=== PATIENT | female | born 1990 | race Caucasian/White ===

== ENCOUNTER 2016-10-03 23:35 | Emergency (ER) | payer MEDICAID ==
[2016-10-03 23:39] VITALS: BP 101/57; PULSE 79; RESP 16; TEMP 98; O2SAT 99
[2016-10-04] MEDS ORDERED: ACETAMINOPHEN 325 MG TAB PO ONE ×2 (01:15)
--- NOTE | 2016-10-04 01:15 | PD ---
HPI Chief Complaint: Headache Time Seen by Provider: 01:09 Travel History International Travel<30 days: No Contact w/Intl Traveler<30days: No Traveled to known affect area: No History of Present Illness HPI 25-year-old female [id number] in her first trimester presents emergency department for evaluation of headache. According to the patient she is approximately 10 weeks . Translation through the [employer] computer system. She states that she had gone to [facility] approximately 2 weeks ago when she was diagnosed with . She states that she has developed intermittent temporal headaches now for the past week. They can be very sharp and stabbing at times. Currently the pain is mild. She denies any associated nausea or vomiting. No numbness, tingling or weakness. No visual changes. She denies any vaginal bleeding or leakage of fluid. No urinary symptoms. She has not been sick otherwise. She has not seen an OB doctor yet. [facility] Past Medical History Medical History: Denies Significant Hx Tetanus Vaccination: < 5 Years ?: LMP: 07/21/16 Past Surgical History Surgical History: No Previous Surgery Social History Alcohol Use: No Tobacco Use: No Substance Use: No Allergies-Medications (Allergen,Severity, Reaction): Coded Allergies: No Known Allergies (Unverified , 10/04/16) Review of Systems ROS Limitations: Language Barrier Except as stated in HPI: all other systems reviewed are Neg Physical Exam Narrative GENERAL: Well-developed, well-nourished in no apparent distress. Nontoxic appearing. HEAD: Normocephalic, atraumatic. EYES: Pupils equal round and reactive. Extraocular motions intact. No scleral icterus. No injection or drainage. ENT: Nose clear. Throat without erythema, tonsillar hypertrophy or exudate. Uvula midline. Airway patent. NECK: Trachea midline. Supple, nontender, moves head freely. No central bony tenderness or spasm. CARDIOVASCULAR: Regular rate and rhythm without murmurs, gallops, or rubs. RESPIRATORY: Clear to auscultation. Breath sounds equal bilaterally. No wheezes , rales, or rhonchi. GASTROINTESTINAL: Abdomen soft, non-tender, nondistended. No hepato-splenomegaly , or palpable masses. No guarding. EXTREMITIES: No clubbing, cyanosis, or edema. No joint tenderness. BACK: Nontender without deformity. No flank tenderness. NEUROLOGICAL: Awake, alert and oriented x 3 .Cranial nerves grossly intact. Motor and sensory grossly within normal limits. Normal speech. Normal gait. Data Data Last Documented VS Vital Signs Date Time Temp Pulse Resp B/P Pulse Ox O2 Delivery O2 Flow Rate FiO2 10/03/16 23:39 98.0 79 16 101/57 99 Orders Acetaminophen (Tylenol) (10/04/16 01:15) Acetaminophen (Tylenol) (10/04/16 01:15) MDM Medical Decision Making Medical Screen Exam Complete: Yes Emergency Medical Condition: Yes Medical Record Reviewed: Yes Differential Diagnosis MDM: High Differential diagnoses: Subarachnoid hemorrhage, intracranial bleed, aneurysm, pseudotumor, migraine, cluster headache, atypical migraine, temporal arteritis, connective tissue disorder, hypertension, temporal arteritis, sinusitis, sinus headache,malingering Narrative Course The patient is resting comfortable in the examination room. Her vital signs are normal. Her exam is normal. She does not appear to be in any distress whatsoever. I do not believe that any imaging or lab testing are indicated at this time. This is related to the patient through the packager machine. The patient states understanding. She requests formation regarding health and social care teacher for Medicaid follow-up. The patient is given 650 of Tylenol by mouth here in the ER and discharged in stable condition with outpatient follow-up information. This is cephalgia, first trimester Diagnosis Primary Impression: Cephalgia Additional Impression: First trimester Referrals: [facility] 1 week [facility] 1 week Purchasing Coordinator 1 week [facility] Dept. 1 day Patient Instructions: General Instructions Additional Instructions: Rest. Increase fluids. Tylenol for pain. Follow-up with the health Department. Follow-up with an [employer]. Med/Other Pt SpecificInfo: No Meds Exist/No RX given Disposition: DISCHARGE HOME Condition: Stable Richar Blel Oct 04, 2016 01:15
== END 2016-10-04 01:31 | disposition home or self-care (01) ==
LOC: NEPB 23:35
DX: O26.91 Pregnancy related conditions, unspecified, first trimester (principal); R51 Headache; Z3A.10 10 weeks gestation of pregnancy
CPT/HCPCS: 99283

== ENCOUNTER 2016-12-09 01:53 | Emergency (ER) | payer MEDICAID ==
[2016-12-09 01:55] VITALS: BP 112/80; PULSE 88; RESP 16; TEMP 98
--- NOTE | 2016-12-09 02:49 | PD ---
HPI Chief Complaint: Flank/Kidney Pain Time Seen by Provider: 02:09 Travel History International Travel<30 days: No Contact w/Intl Traveler<30days: No Traveled to known affect area: No History of Present Illness HPI 26-year-old female complains of right flank pain and low abdominal pain. Patient is 19 weeks by date. Patient is 1 para 0. Patient started having right flank pain and low abdominal pain started this morning. Patient denies any dysuria or frequency. Patient denies any vaginal discharge or bleeding. Patient states that she has no care for this . PFSH Past Medical History ?: Social History Alcohol Use: No Tobacco Use: No Substance Use: No Allergies-Medications (Allergen,Severity, Reaction): Coded Allergies: No Known Allergies (Unverified , 12/09/16) Reported Meds & Prescriptions Reported Meds & Active Scripts Active No Active Prescriptions or Reported Medications Review of Systems General / Constitutional: No: Fever Eyes: No: Visual changes HENT: No: Headaches Cardiovascular: No: Chest Pain or Discomfort Respiratory: No: Shortness of Breath Gastrointestinal: Positive: Abdominal Pain Genitourinary: No: Dysuria Musculoskeletal: No: Pain Skin: No Rash Neurologic: No: Weakness Psychiatric: No: Depression Endocrine: No: Polydipsia Hematologic/Lymphatic: No: Easy Bruising Physical Exam Narrative GENERAL: Well-nourished, well-developed patient. SKIN: Warm and dry. HEAD: Normocephalic. EYES: No scleral icterus. No injection or drainage. NECK: Supple, trachea midline. No JVD or lymphadenopathy. CARDIOVASCULAR: Regular rate and rhythm without murmurs, gallops, or rubs. RESPIRATORY: Breath sounds equal bilaterally. No accessory muscle use. GASTROINTESTINAL: Fungal high blood umbilicus. Mild tenderness on palpation lower abdomen. No rebound tenderness MUSCULOSKELETAL: No cyanosis, or edema. BACK: Mild tenderness on palpation right flank area. Data Data Last Documented VS Vital Signs Date Time Temp Pulse Resp B/P Pulse Ox O2 Delivery O2 Flow Rate FiO2 12/09/16 01:55 98.0 88 16 112/80 Room Air Orders Urinalysis - C+S If Indicated (12/09/16 03:24) Acetaminophen (Tylenol) (12/09/16 03:30) Us Kidney/Renal/Bladder (12/09/16 05:02) Complete Blood Count With Diff (12/09/16 05:03) Comprehensive Metabolic Panel (12/09/16 05:03) Complete Rh (12/09/16 05:03) Labs Laboratory Tests Test 12/09/16 12/09/16 03:20 05:10 Urine Color YELLOW Urine Turbidity CLEAR Urine pH 6.0 Urine Specific [place] 1.020 Urine Protein NEG mg/dL Urine Glucose (UA) NEG mg/dL Urine Ketones NEG mg/dL Urine Occult Blood NEG Urine Nitrite NEG Urine Bilirubin NEG Urine Urobilinogen LESS THAN 2.0 MG/DL Urine Leukocyte Esterase TRACE Urine RBC LESS THAN 1 /hpf Urine WBC 2 /hpf Urine Squamous Epithelial 2 /hpf Cells Urine Bacteria OCC /hpf Urine Mucus FEW /lpf Microscopic Urinalysis Comment CULT NOT INDICATED White Blood Count 9.0 TH/MM3 Red Blood Count 3.55 MIL/MM3 Hemoglobin 11.5 GM/DL Hematocrit 32.3 % Mean Corpuscular Volume 90.9 FL Mean Corpuscular Hemoglobin 32.3 PG Mean Corpuscular Hemoglobin 35.5 % Concent Red Cell Distribution Width 13.3 % Platelet Count 211 TH/MM3 Mean Platelet Volume 8.3 FL Neutrophils (%) (Auto) 67.2 % Lymphocytes (%) (Auto) 21.5 % Monocytes (%) (Auto) 8.2 % Eosinophils (%) (Auto) 2.2 % Basophils (%) (Auto) 0.9 % Neutrophils # (Auto) 6.1 TH/MM3 Lymphocytes # (Auto) 1.9 TH/MM3 Monocytes # (Auto) 0.7 TH/MM3 Eosinophils # (Auto) 0.2 TH/MM3 Basophils # (Auto) 0.1 TH/MM3 CBC Comment DIFF FINAL Differential Comment Sodium Level 140 MEQ/L Potassium Level 3.7 MEQ/L Chloride Level 109 MEQ/L Carbon Dioxide Level 22.2 MEQ/L Anion Gap 9 MEQ/L Blood Urea Nitrogen 6 MG/DL Creatinine 0.34 MG/DL Estimat Glomerular Filtration 237 ML/MIN Rate Random Glucose 87 MG/DL Calcium Level 8.5 MG/DL Total Bilirubin LESS THAN 0.1 MG/DL Aspartate Amino Transf 35 U/L (AST/SGOT) Alanine Aminotransferase 42 U/L (ALT/SGPT) Alkaline Phosphatase 78 U/L Total Protein 6.4 GM/DL Albumin 2.9 GM/DL Blood Type O POSITIVE Rho(D) Type POSITIVE [facility] Medical Decision Making Medical Screen Exam Complete: Yes Emergency Medical Condition: Yes Interpretation(s) 6:11 AM. CBC within normal limit. CMP within normal limit. UA is negative. Patient's blood type O+. Differential Diagnosis Differential diagnosis including labor, placenta abruptio, UTI, pyelonephritis, nephrolithiasis. Narrative Course 26-year-old female with low abdominal pain and right flank pain. Patient is 19 weeks . I spoke with ED OB. We will sent patient to OB floor for evaluation. Patient came back from OB floor after clearance by ED OB. Scripts No Active Prescriptions or Reported Meds Stevo Bullock MD Dec 09, 2016 02:49
[2016-12-09 03:25] VITALS: BP 124/76; PULSE 78; RESP 14
[2016-12-09] MEDS ORDERED: ACETAMINOPHEN 500 MG CPLT PO ONE (03:30)
[2016-12-09 03:36] LABS: BACTERIA, URINE OCC /hpf; BLOOD, URINE NEG (NEG); COMMENT (UR) CULT NOT INDICATED; CULTURE IF INDICATED CULT NOT INDICATED; GLUCOSE,URINE NEG (NEG); KETONE, URINE NEG (NEG); MUCUS URINE FEW /lpf (OCC); NITRITE,URINE NEG (NEG); SQUAMOUS EPITHELIAL CELL URINE 2 /hpf (0-5); URINE COLOR YELLOW (YELLW/STRAW)
--- NOTE | 2016-12-09 03:44 | PD ---
HPI Chief Complaint Right flank pain Travel History International Travel<30 Days: No Contact w/Intl Traveler<30Days: No Known Affected Area: No History of Present Illness HPI G1 at 20w 1d, LUANNE 04-27-17, presents with c/o right flank pain for a few days. Patient denies dysuria or hematuria. No bowel complaints. Denies taking anything for pain relief. Reports FM. Denies LOF or VB. Patient without care this . Denies F/C. Palauan speaking only. Para: 0 : 1 History Past Medical History Medical History: Denies Significant Hx Past Surgical History Surgical History: No Previous Surgery Family History Family History: Negative Social History Alcohol Use: No Tobacco Use: No Substance Abuse: No Allergies-Medications (Allergen,Severity, Reaction): Coded Allergies: No Known Allergies (Unverified , 12/09/16) Physical Exam AFVSS BP 111/55 Vital Signs Date Time Temp Pulse Resp B/P Pulse Ox O2 Delivery O2 Flow Rate FiO2 12/09/16 01:55 98.0 88 16 112/80 Room Air Narrative GENERAL: Well-nourished, well-developed patient. SKIN: Warm and dry. HEAD: Normocephalic and atraumatic. EYES: No scleral icterus. No injection or drainage. ENT: No nasal drainage noted. Mucous membranes pink. Airway patent. NECK: Supple, trachea midline. No JVD. CARDIOVASCULAR: Regular rate and rhythm without murmurs, gallops, or rubs. RESPIRATORY: Breath sounds equal bilaterally. No accessory muscle use. BREASTS: Bilateral exam showed no masses , no retractions, no nipple discharge. ABDOMEN/GI: Abdomen soft, non-tender, bowel sounds present, no rebound, no guarding Gravid to [-] weeks size Fundal Height: [-] GENITOURINARY: External Genitalia: intact and normal in appearance BUS glands: [-] Cervix: [-] Dilatation: [0] Effacement: [50] Station: [3] Presentation: [-] Membranes: [intact or ruptured] Uterine Contractions: [none] FHT's: 140s Category: [-] Baseline: [-] Reactive: [-] Variability: [-] Decels: [-] EXTREMITIES: No cyanosis or edema. BACK: Nontender without obvious deformity. Slight right CVA tenderness. NEUROLOGICAL: Awake and alert. Motor and sensory grossly within normal limits. Five out of 5 muscle strength in all muscle groups. Normal speech. Data Data Orders Urinalysis - C+S If Indicated (12/09/16 03:24) Acetaminophen (Tylenol) (12/09/16 03:30) Labs Laboratory Tests Test 12/09/16 03:20 Urine Color YELLOW Urine Turbidity CLEAR Urine pH 6.0 Urine Specific [place] 1.020 Urine Protein NEG mg/dL Urine Glucose (UA) NEG mg/dL Urine Ketones NEG mg/dL Urine Occult Blood NEG Urine Nitrite NEG Urine Bilirubin NEG Urine Urobilinogen LESS THAN 2.0 MG/DL Urine Leukocyte Esterase TRACE Urine RBC LESS THAN 1 /hpf Urine WBC 2 /hpf Urine Squamous Epithelial 2 /hpf Cells Urine Bacteria OCC /hpf Urine Mucus FEW /lpf Microscopic Urinalysis Comment CULT NOT INDICATED MDM Interpretation(s) G1 at 20w 1d with right flank pain. Plan Will send patient to ED for further evaluation/renal US. Translation services were utilized. Patient was counseled on importance of care. Information regarding provider given. Importance of hydration also d/w patient. All questions answered. D/w Dr. Bullock in ED. Diagnosis Diagnosis: Primary Impression: 20 weeks gestation of Additional Impression: Back pain affecting in second trimester Disposition: 01 DISCHARGE HOME (To ED for further evaluation, d/w Dr. Bullock) Condition: Alysia Mixon MD Dec 09, 2016 03:44
[2016-12-09 04:30] VITALS: BP 120/80; PULSE 82; RESP 14
[2016-12-09 05:17] LABS: AUTOMATED NEUTROPHIL # 6.1 TH/MM3 (1.8-7.7); BASOPHIL # 0.1 TH/MM3 (0-0.2); BASOPHIL % 0.9 % (0.0-2.0); EOSINOPHIL # 0.2 TH/MM3 (0-0.4); EOSINOPHIL % 2.2 % (0.0-4.0); HEMATOCRIT 32.3 % (35.0-46.0); HEMO FLAGS DIFF FINAL; LYMPH % 21.5 % (9.0-44.0); LYMPHOCYTE # 1.9 TH/MM3 (1.0-4.8); MEAN CELL VOLUME 90.9 FL (80.0-100.0); MEAN CORPUSCULAR HEMOGLOBIN 32.3 PG (27.0-34.0); MEAN CORPUSCULAR HGB CONC 35.5 % (32.0-36.0); MONO % 8.2 % (0.0-8.0); NEUT % 67.2 % (16.0-70.0); PLATELET COUNT 211 TH/MM3 (150-450); RED BLOOD COUNT 3.55 MIL/MM3 (4.00-5.30); RED CELL DISTRIBUTION WIDTH 13.3 % (11.6-17.2)
[2016-12-09 05:31] LABS: ALT (GPT) 42 U/L (10-53); ANION GAP 9 MEQ/L (5-15); AST (GOT) 35 U/L (15-37); BICARBONATE 22.2 MEQ/L (21.0-32.0); BLOOD UREA NITROGEN 6 MG/DL (7-18); CHLORIDE 109 MEQ/L (98-107); GLOMERULAR FILTRATION RATE 237 ML/MIN (>89); POTASSIUM 3.7 MEQ/L (3.5-5.1); SODIUM (NA) 140 MEQ/L (136-145)
[2016-12-09 05:34] LABS: ALKALINE PHOSPHATASE 78 U/L (45-117); TOTAL BILIRUBIN ADULT LESS THAN 0.1 MG/DL (0.2-1.0)
[2016-12-09 06:38] VITALS: BP 118/78; PULSE 80; RESP 14
--- NOTE | 2016-12-09 10:03 | RADRPT ---
EXAM DATE/TIME: 12/09/2016 08:18 [facility] COMPARISON: No previous studies available for comparison. INDICATIONS : Obstruction, right flank pain. MEDICAL HISTORY : 19 weeks . SURGICAL HISTORY : None. ENCOUNTER: Initial ACUITY: 1 day PAIN SCORE: 3/10 LOCATION: Bilateral flank MEASUREMENTS: RIGHT KIDNEY: 11.6 x 5.6 x 6.3 cm LEFT KIDNEY: 11.0 x 4.0 x 6.2 cm FINDINGS: RIGHT KIDNEY: Renal cortex is normal in thickness and echotexture. Moderate hydronephrosis. No stones. LEFT KIDNEY: Renal cortex is normal in thickness and echotexture. Mild hydronephrosis. No stones BLADDER: Bladder is decompressed. There is a gravid uterus. Images of the head are provided. CONCLUSION: 1. Moderate hydronephrosis on the right and mild hydronephrosis on the left. 2. Gravid uterus. Urinary bladder is mostly decompressed. Jimbo Ayon MD on December 09, 2016 at 9:55 Board Certified Radiologist. This report was verified electronically.
[2016-12-09] MEDS ORDERED: CEPH-460 PO (10:26)
[2016-12-09] MEDS ORDERED: ZOFR4TAB3 SL (10:27)
[2016-12-09] MEDS ORDERED: HYDR-3533 PO (10:27)
--- NOTE | 2016-12-09 10:27 | PD ---
Physical Exam Date Seen by Provider: Dec 09, 2016 Time Seen by Provider: 07:00 Narrative Patient initially seen by Dr. Bass please see his nose for further details. She is 20 weeks without care, states that she is still waiting for insurance to get care. She is here because of flank pains which is worse on the right. Lab work did not show significant issues, does show bacteriuria which we plan to treat with antibiotics. Her ultrasound did not show signs of kidney stones but does show hydronephrosis on both sides more pronounced on the right than the left, likely secondary to gravid uterus compression of the ureters rather than kidney stones although a kidney stone can be hard to rule out these cases. However, patient appears fairly comfortable in the ER and I would not recommend a CAT scan at this point considering the findings. Return for any worsening in pain or new symptoms as needed. I have talked to the patient regarding findings and have recommended that she follows up with women's care now and gynecology. Return for any worsening in pain or new symptoms as needed. The plan has been discussed with the patient and she states understanding. Data Data Last Documented VS Vital Signs Date Time Temp Pulse Resp B/P Pulse Ox O2 Delivery O2 Flow Rate FiO2 12/09/16 06:38 80 14 118/78 Room Air 12/09/16 01:55 98.0 Orders Urinalysis - C+S If Indicated (12/09/16 03:24) Acetaminophen (Tylenol) (12/09/16 03:30) Us Kidney/Renal/Bladder (12/09/16 05:02) Complete Blood Count With Diff (12/09/16 05:03) Comprehensive Metabolic Panel (12/09/16 05:03) Complete Rh (12/09/16 05:03) Labs Laboratory Tests Test 12/09/16 12/09/16 03:20 05:10 Urine Color YELLOW Urine Turbidity CLEAR Urine pH 6.0 Urine Specific [place] 1.020 Urine Protein NEG mg/dL Urine Glucose (UA) NEG mg/dL Urine Ketones NEG mg/dL Urine Occult Blood NEG Urine Nitrite NEG Urine Bilirubin NEG Urine Urobilinogen LESS THAN 2.0 MG/DL Urine Leukocyte Esterase TRACE Urine RBC LESS THAN 1 /hpf Urine WBC 2 /hpf Urine Squamous Epithelial 2 /hpf Cells Urine Bacteria OCC /hpf Urine Mucus FEW /lpf Microscopic Urinalysis Comment CULT NOT INDICATED White Blood Count 9.0 TH/MM3 Red Blood Count 3.55 MIL/MM3 Hemoglobin 11.5 GM/DL Hematocrit 32.3 % Mean Corpuscular Volume 90.9 FL Mean Corpuscular Hemoglobin 32.3 PG Mean Corpuscular Hemoglobin 35.5 % Concent Red Cell Distribution Width 13.3 % Platelet Count 211 TH/MM3 Mean Platelet Volume 8.3 FL Neutrophils (%) (Auto) 67.2 % Lymphocytes (%) (Auto) 21.5 % Monocytes (%) (Auto) 8.2 % Eosinophils (%) (Auto) 2.2 % Basophils (%) (Auto) 0.9 % Neutrophils # (Auto) 6.1 TH/MM3 Lymphocytes # (Auto) 1.9 TH/MM3 Monocytes # (Auto) 0.7 TH/MM3 Eosinophils # (Auto) 0.2 TH/MM3 Basophils # (Auto) 0.1 TH/MM3 CBC Comment DIFF FINAL Differential Comment Sodium Level 140 MEQ/L Potassium Level 3.7 MEQ/L Chloride Level 109 MEQ/L Carbon Dioxide Level 22.2 MEQ/L Anion Gap 9 MEQ/L Blood Urea Nitrogen 6 MG/DL Creatinine 0.34 MG/DL Estimat Glomerular Filtration 237 ML/MIN Rate Random Glucose 87 MG/DL Calcium Level 8.5 MG/DL Total Bilirubin LESS THAN 0.1 MG/DL Aspartate Amino Transf 35 U/L (AST/SGOT) Alanine Aminotransferase 42 U/L (ALT/SGPT) Alkaline Phosphatase 78 U/L Total Protein 6.4 GM/DL Albumin 2.9 GM/DL Blood Type O POSITIVE Rho(D) Type POSITIVE MDM Medical Record Reviewed: Yes Supervised Visit with CHOCO: No Diagnosis Primary Impression: 20 weeks gestation of Additional Impression: Back pain affecting in second trimester Patient Instructions: General Instructions, Early Labor Signs (ED), Labor (ED), Movement (ED), Urinary Tract Infection in (ED) Departure Forms: Tests/Procedures Med/Other Pt SpecificInfo: Prescription(s) given Scripts Ondansetron Odt (Zofran Odt)4 Mg Tab4 Mg SL Q6HR PRN (Nausea/Vomiting) #5 TAB Ref 0 Prov:SoonTra king MD 12/09/16 Hydrocodone-Acetaminophen (Lortab)5-325 Mg Tab1 Tab PO Q6H PRN (PAIN) #12 TAB Ref 0 Prov:Soontharothai,Rewadee MD 12/09/16 Cephalexin (Keflex)500 Mg Nut113 Mg PO Q8H #21 CAP Ref 0 Prov:Tra Jones MD 12/09/16 Disposition: 01 DISCHARGE HOME Condition: Good Tra Jones MD Dec 09, 2016 10:27
[2016-12-09 10:34] VITALS: BP 114/62
== END 2016-12-09 10:37 | disposition home or self-care (01) ==
LOC: HOBED 01:53 → NEPE 10:37
DX: O26.892 Other specified pregnancy related conditions, second trimester (principal); M54.9 Dorsalgia, unspecified; R10.30 Lower abdominal pain, unspecified; R82.71 Bacteriuria; O09.32 Supervision of pregnancy with insufficient antenatal care, second trimester; Z3A.20 20 weeks gestation of pregnancy
CPT/HCPCS: 76775; 80053; 81001; 84112; 85025; 86901

== ENCOUNTER 2017-02-22 00:32 | Observation (INO) | payer MEDICAID ==
[~2017-02-22] VITALS: Ht 162.6 cm; Wt 48.0 kg
[2017-02-22] VITALS (10 sets, daily range): BP systolic 94–109; BP diastolic 54–69; PULSE 75–160; RESP 14–28; TEMP 97.7–98.9; O2SAT 98–100
[~2017-02-22 00:32] MED LIST: CEPH-460 PO; HYDR-3533 PO; ZOFR4TAB3 SL
[2017-02-22] MEDS ORDERED: LACTATED RINGER'S 1000 ML INJ 1,000 ML IV SCH (00:38)
[2017-02-22 00:49] LABS: HEMATOCRIT 31.2 % (35.0-46.0); MEAN CORPUSCULAR HEMOGLOBIN 30.9 PG (27.0-34.0); MEAN CORPUSCULAR HGB CONC 34.8 % (32.0-36.0); PLATELET COUNT 257 TH/MM3 (150-450); RED BLOOD COUNT 3.51 MIL/MM3 (4.00-5.30); RED CELL DISTRIBUTION WIDTH 12.7 % (11.6-17.2); REVIEW FLAG FINAL; WHITE BLOOD COUNT 11.1 TH/MM3 (4.0-11.0)
[2017-02-22 01:07] LABS: ALT (GPT) 19 U/L (10-53); ANION GAP 12 MEQ/L (5-15); AST (GOT) 22 U/L (15-37); BICARBONATE 21.9 MEQ/L (21.0-32.0); BLOOD UREA NITROGEN 4 MG/DL (7-18); CHLORIDE 105 MEQ/L (98-107); GLOMERULAR FILTRATION RATE 159 ML/MIN (>89); POTASSIUM 3.3 MEQ/L (3.5-5.1); SODIUM (NA) 139 MEQ/L (136-145)
[2017-02-22 01:09] LABS: ALKALINE PHOSPHATASE 162 U/L (45-117); TOTAL BILIRUBIN ADULT 0.2 MG/DL (0.2-1.0)
--- NOTE | 2017-02-22 01:11 | PD ---
HPI Chief Complaint Patient brought in by her family and essentially catatonic state saying that she is now noncommunicative Date Seen: Feb 22, 2017 Travel History International Travel<30 Days: No Contact w/Intl Traveler<30Days: No Known Affected Area: No History of Present Illness HPI Patient 26-year-old at 30 weeks gestation who presents brought in by her family and essentially catatonic state of after an event at home. She was doing well but all day had severe headaches she has no history of any Medical problems no history of headaches no history of hypertension, she then as this family describes it fell out became unresponsive they felt she wouldn't have a pulse they tried mouth to mouth resuscitation she was breathing and had heart rate but was essentially unresponsive she can look at you she can shake her head that she cannot speak, she was speaking prior to all this family relates that she was very normal happy person with no problems, she does not speak Upper Sorbian and nor does the family. Here on OB ED the patient is noncommunicative of she does express pain by crying but says she cannot speak family says she cannot speak Para: 0 : 1 History Past Medical History Medical History: Denies Significant Hx Social History Alcohol Use: No Tobacco Use: No Substance Abuse: No Allergies-Medications (Allergen,Severity, Reaction): Coded Allergies: No Known Allergies (Unverified , 12/09/16) Home Meds Active Scripts Ondansetron Odt (Zofran Odt)4 Mg Tab4 Mg SL Q6HR PRN (Nausea/Vomiting) #5 TAB Ref 0 Prov:Tra Jones MD 12/09/16 Hydrocodone-Acetaminophen (Lortab)5-325 Mg Tab1 Tab PO Q6H PRN (PAIN) #12 TAB Ref 0 Prov:Tra Jones MD 12/09/16 Cephalexin (Keflex)500 Mg Dxi111 Mg PO Q8H #21 CAP Ref 0 Prov:Tra Jones MD 12/09/16 Physical Exam Narrative GENERAL: Well-nourished, well-developed patient. SKIN: Warm and dry. HEAD: Normocephalic and atraumatic. EYES: No scleral icterus. No injection or drainage. Pupils are not dilated and equal and reactive ENT: No nasal drainage noted. Mucous membranes pink. Airway patent. NECK: Supple, trachea midline. No JVD. CARDIOVASCULAR: Regular rate and rhythm without murmurs, gallops, or rubs. RESPIRATORY: Breath sounds equal bilaterally. No accessory muscle use. BREASTS: Bilateral exam showed no masses , no retractions, no nipple discharge. ABDOMEN/GI: Abdomen soft, non-tender, bowel sounds present, no rebound, no guarding Gravid to [-30] weeks size Presentation: [Backdown transverse with the head to the left-] Membranes: [intact ] Uterine Contractions: [none-] FHT's: Category: [1-] Baseline: [-144] Reactive: [-yes] Variability: [mod-] Decels: [0-] EXTREMITIES: No cyanosis or edema. BACK: Nontender without obvious deformity. No CVA tenderness. NEUROLOGICAL: Apparently a large mental status change this patient after severe headache earlier this evening, now aphasic unable to speak and will not move voluntarily Data Data Orders Vital Signs (Adult) .ON ADMISSION (02/22/17 00:38) ^ Labor Status (02/22/17 00:38) Urinalysis - C+S If Indicated (02/22/17 00:38) Cbc No Diff, Includes Plts (02/22/17 00:38) Comprehensive Metabolic Panel (02/22/17 00:38) Type And Screen (02/22/17 00:38) Lactated Ringer's 1000 Ml Inj (Lr 1000 M (02/22/17 00:38) Ob/Psych Drug Screen, Urine (02/22/17 00:38) Ob Poc Ultrasound (02/22/17 ) Labs Bedside ultrasound done with male fetus in a backdown transverse lie with the head to the left gestational age of 30 weeks 3 days by the growth parameters, posterior placenta and adequate amniotic fluid, no gross abnormalities and anatomy scan estimated weight 1505 gm Laboratory Tests Test 02/22/17 00:38 White Blood Count 11.1 Red Blood Count 3.51 Hemoglobin 10.9 Hematocrit 31.2 Mean Corpuscular Volume 89.0 Mean Corpuscular Hemoglobin 30.9 Mean Corpuscular Hemoglobin 34.8 Concent Red Cell Distribution Width 12.7 Platelet Count 257 Mean Platelet Volume 8.2 MDM Interpretation(s) This patient is [id number]-[id number]-year-old at 30 weeks gestation who presents with acute mental status change after massive headache event earlier at home, the patient is noncommunicative a phasic and his sister catatonic only responding to the pain but is shaking or crying but not able to speak Plan Plan for this patient be transferred back to the main emergency room for acute neurologic emergent evaluation with CT scan and or MRI of the head, laps been drawn most of it pending at this time urinalysis sent drug screen sent, cleared from obstetric standpoint with the 30 week fetus with reactive strip and normal ultrasound plan to transfer to the main emergency room for further care Diagnosis Diagnosis: Primary Impression: Mental status change Additional Impression: Aphasia determined by examination Condition: Serious Charles Hidalgo II, MD Feb 22, 2017 01:11
[2017-02-22 01:17] LABS: BLOOD, URINE NEG (NEG); COMMENT (UR) CULT NOT INDICATED; CULTURE IF INDICATED CULT NOT INDICATED; GLUCOSE,URINE 300 mg/dL (NEG); KETONE, URINE 10 mg/dL (NEG); MUCUS URINE FEW /lpf (OCC); NITRITE,URINE NEG (NEG); PH, URINE 6.5 (5.0-8.5); SQUAMOUS EPITHELIAL CELL URINE <1 /hpf (0-5); TRANSITIONAL EPI CELLS, URINE <1 /hpf; URINE COLOR YELLOW (YELLW/STRAW)
[2017-02-22 01:18] LABS: AMPHETAMINE, URINE NEG (NEG); BARBITURATES, URINE NEG (NEG); COCAINE, URINE NEG (NEG)
--- NOTE | 2017-02-22 01:44 | RADRPT ---
EXAM DATE/TIME: 02/22/2017 01:30 [facility] COMPARISON: No previous studies available for comparison. INDICATIONS : Altered mental status. Patient in catatonic state. Headache. RADIATION DOSE: 33.81 CTDIvol (mGy) MEDICAL HISTORY : Non-responsive. SURGICAL HISTORY : Non-responsive. ENCOUNTER: Initial ACUITY: 1 day PAIN SCALE: Non-responsive LOCATION: cranial TECHNIQUE: Multiple contiguous axial images were obtained of the head. Using automated exposure control and adj ustment of the mA and/or kV according to patient size, radiation dose was kept as low as reasonably a chievable to obtain optimal diagnostic quality images. FINDINGS: CEREBRUM: The ventricles are normal for age. No evidence of midline shift, mass lesion, hemorrhage or acute in farction. No extra-axial fluid collections are seen. POSTERIOR FOSSA: The cerebellum and brainstem are intact. The 4th ventricle is midline. The cerebellopontine angle i s unremarkable. EXTRACRANIAL: The visualized portion of the orbits is intact. SKULL: The calvaria is intact. No evidence of skull fracture. CONCLUSION: Normal examination. Juan Luis Antonio MD on February 22, 2017 at 1:42 Board Certified Radiologist. This report was verified electronically.
--- NOTE | 2017-02-22 04:17 | PD ---
HPI Chief Complaint: Neuro Symptoms/ Deficits Time Seen by Provider: 01:27 Travel History International Travel<30 days: No Contact w/Intl Traveler<30days: No Traveled to known affect area: No History of Present Illness HPI 26yo F who is 30 weeks was sent here after being evaluated by OB ED for evaluation because she was nonverbal since 12am. Pt was tearful and nonverbal and as per family, it just started at 12am. Pt is following commands. Family states pt had headache since 2pm today. Denies any fever or vomiting. Pt nods and shakes head and shakes that the right side does not feel the same. PFSH Past Medical History Medical History: Denies Significant Hx Diminished Hearing: No Immunizations Current: Yes ?: Social History Alcohol Use: No Tobacco Use: No Substance Use: No Allergies-Medications (Allergen,Severity, Reaction): Coded Allergies: No Known Allergies (Unverified , 12/09/16) Reported Meds & Prescriptions Reported Meds & Active Scripts Active No Active Prescriptions or Reported Medications Review of Systems Except as stated in HPI: all other systems reviewed are Neg Physical Exam Narrative GENERAL: 26yo F in moderate distress. SKIN: Focused skin assessment warm/dry. HEAD: Atraumatic. Normocephalic. EYES: Pupils equal and round. No scleral icterus. No injection or drainage. ENT: No nasal bleeding or discharge. Mucous membranes pink and moist. NECK: Trachea midline. No JVD. CARDIOVASCULAR: Regular rate and rhythm. No murmur appreciated. RESPIRATORY: No accessory muscle use. Clear to auscultation. Breath sounds equal bilaterally. GASTROINTESTINAL: Abdomen soft, non-tender, nondistended. Hepatic and splenic margins not palpable. MUSCULOSKELETAL: No obvious deformities. No clubbing. No cyanosis. No edema. NEUROLOGICAL: Awake and alert. Aphasic. Motor grossly within normal limits. PSYCHIATRIC: Inappropriate mood and affect; insight and judgment abnormal. Data Data Last Documented VS Vital Signs Date Time Temp Pulse Resp B/P Pulse Ox O2 Delivery O2 Flow Rate FiO2 02/22/17 01:30 98.9 76 28 104/56 99 Room Air Orders Vital Signs (Adult) .ON ADMISSION (02/22/17 00:38) ^ Labor Status (02/22/17 00:38) Urinalysis - C+S If Indicated (02/22/17 00:38) Cbc No Diff, Includes Plts (02/22/17 00:38) Comprehensive Metabolic Panel (02/22/17 00:38) Type And Screen (02/22/17 00:38) Lactated Ringer's 1000 Ml Inj (Lr 1000 M (02/22/17 00:38) Ob/Psych Drug Screen, Urine (02/22/17 00:38) Ob Poc Ultrasound (02/22/17 ) Ur Bath Salts (02/22/17 00:50) Ur Heroin (02/22/17 00:50) Ur K2 Spice (02/22/17 00:50) Ur Ecstasy (02/22/17 00:50) Phencyclidine Urine (Pcp) (02/22/17 00:50) Ct Brain W/O Iv Contrast(Rout) (02/22/17 ) Mri Brain W/O Contrast (02/22/17 ) Mra Brain W/O Contrast (Cow) (02/22/17 ) Admit Order (Ed Use Only) (02/22/17 03:59) Labs Laboratory Tests Test 02/22/17 02/22/17 00:38 00:50 White Blood Count 11.1 TH/MM3 Red Blood Count 3.51 MIL/MM3 Hemoglobin 10.9 GM/DL Hematocrit 31.2 % Mean Corpuscular Volume 89.0 FL Mean Corpuscular Hemoglobin 30.9 PG Mean Corpuscular Hemoglobin 34.8 % Concent Red Cell Distribution Width 12.7 % Platelet Count 257 TH/MM3 Mean Platelet Volume 8.2 FL Sodium Level 139 MEQ/L Potassium Level 3.3 MEQ/L Chloride Level 105 MEQ/L Carbon Dioxide Level 21.9 MEQ/L Anion Gap 12 MEQ/L Blood Urea Nitrogen 4 MG/DL Creatinine 0.48 MG/DL Estimat Glomerular Filtration 159 ML/MIN Rate Random Glucose 113 MG/DL Calcium Level 8.1 MG/DL Total Bilirubin 0.2 MG/DL Aspartate Amino Transf 22 U/L (AST/SGOT) Alanine Aminotransferase 19 U/L (ALT/SGPT) Alkaline Phosphatase 162 U/L Total Protein 6.9 GM/DL Albumin 2.9 GM/DL Blood Type O POSITIVE Antibody Screen NEGATIVE Urine Color YELLOW Urine Turbidity CLEAR Urine pH 6.5 Urine Specific Coleman 1.017 Urine Protein TRACE mg/dL Urine Glucose (UA) 300 mg/dL Urine Ketones 10 mg/dL Urine Occult Blood NEG Urine Nitrite NEG Urine Bilirubin NEG Urine Urobilinogen LESS THAN 2.0 MG/DL Urine Leukocyte Esterase NEG Urine RBC 1 /hpf Urine WBC 1 /hpf Urine Squamous Epithelial <1 /hpf Cells Urine Transitional Epithelial <1 /hpf Cells Urine Mucus FEW /lpf Microscopic Urinalysis Comment CULT NOT INDICATED Urine Opiates Screen NEG Urine Barbiturates Screen NEG Urine Amphetamines Screen NEG Urine Benzodiazepines Screen NEG Urine Cocaine Screen NEG Urine Cannabinoids Screen NEG MDM Medical Decision Making Medical Screen Exam Complete: Yes Emergency Medical Condition: Yes Differential Diagnosis Conversion disorder vs. psychosis vs. CVA Narrative Course 26yo F brought here from OB ED for evaluation of change in mental status at 12am today. Labs were drawn in OB ED. Labs reviewed, H/H low at 10.9/31.2, likely normal from . K: mildly decreased at 3.3. UA showed some ketones. Pt is tearful, following commands but would not speak. CT brain negative. I discussed with neurologist Dr. Bonner who also does not think this sounds like a stroke but recommend MRI brain and MRA. Pt reevaluated at bedside and started talking. States she has right arm and leg numbness and tingling today. Pt states headache has resolved. Had similar episode 10 months ago when she was stressed. Although this is likely conversion disorder, will need to r/o TIA since pt has no psych history. Discussed with Dr. Arambula and accepted to his service. Diagnosis Primary Impression: Aphasia determined by examination Admitting Information Admitting Physician Requests: Observation Scripts No Active Prescriptions or Reported Meds Condition: Serious Arlen Motta DO Feb 22, 2017 04:17 Condition: Serious Arlen Motta DO Feb 22, 2017 04:17
--- NOTE | 2017-02-22 04:52 | RADRPT ---
EXAM DATE/TIME: 02/22/2017 03:20 [facility] COMPARISON: No previous studies available for comparison. INDICATIONS : Stroke. MEDICAL HISTORY : 30 weeks SURGICAL HISTORY : None. ENCOUNTER: Initial ACUITY: 1 day PAIN SCORE: 3/10 LOCATION: Bilateral cranial Please note a normal MRA of the brain does not entirely exclude the possibility of a small aneurysm, nor the possibility of distal intracranial vessel disease. TECHNIQUE: 3D time of flight MRA was performed. Source images, multiplanar STS MIP, and 3D volume MIP reconstru ctions were reviewed. FINDINGS: There is excellent visualization of the major intracranial arteries out to the second-order branch ve ssels. There is no evidence for aneurysm, vessel truncation or stenosis, and no evidence for vascula r malformation. Both posterior communicating arteries are patent. There is irregularity involving the superior anter ior margin of the left A1 of uncertain significance CONCLUSION: Normal examination in regards to aneurysm or narrowing. Mild irregularity of the left A1 of uncertain significance likely none. Juan Luis Antonio MD on February 22, 2017 at 4:49 Board Certified Radiologist. This report was verified electronically.
--- NOTE | 2017-02-22 04:53 | RADRPT ---
EXAM DATE/TIME: 02/22/2017 03:20 [facility] COMPARISON: CT BRAIN W/O CONTRAST, February 22, 2017, 1:30. INDICATIONS : Stroke. MEDICAL HISTORY : 30 weeks . SURGICAL HISTORY : None. ENCOUNTER: Initial ACUITY: 1 day PAIN SCORE: 3/10 LOCATION: Bilateral cranial TECHNIQUE: Multiplanar, multisequence MRI of the brain was performed without contrast. FINDINGS: CEREBRUM: The ventricles are normal for age. No evidence of midline shift, mass lesion, hemorrhage or acute in farction. No extraaxial fluid collections are seen. The pituitary gland and suprasellar cistern are normal in configuration. WHITE MATTER: No significant signal abnormalities are seen in the white matter. POSTERIOR FOSSA: The cerebellum and brainstem are intact. The 4th ventricle is midline. The cerebellopontine angle is unremarkable. The cerebellar tonsils are normal in position. DIFFUSION IMAGING: No focal areas of restricted diffusion are seen. No evidence of acute infarction. EXTRACRANIAL: The visualized portions of the orbits and paranasal sinuses are unremarkable. CONCLUSION: Normal examination. Juan Luis Antonio MD on February 22, 2017 at 4:51 Board Certified Radiologist. This report was verified electronically.
[2017-02-22] MEDS ORDERED: SODIUM CHLORIDE 0.9% FLUSH 10 ML FLUSH IV FLUSH PRN (07:00)
[2017-02-22] MEDS ORDERED: NALOXONE HCL 0.4 MG/ML AMP IV PRN (07:00)
[2017-02-22] MEDS ORDERED: SODIUM CHLORIDE 0.9% FLUSH 5 ML FLUSH IV FLUSH PRN (07:15)
[2017-02-22] MEDS ORDERED: DEXTROSE 50% IN WATER 50 ML VIAL(D50) IV PUSH PRN (07:15)
[2017-02-22] MEDS ORDERED: GLUCAGON 1 MG/ML VIAL OTHER PRN (07:15)
[2017-02-22] MEDS: SODIUM CHLOR 0.9% 1000 ML INJ 1,000 ML IV SCH ×3 (07:42→21:43)
[2017-02-22] MEDS: SODIUM CHLORIDE 0.9% FLUSH 5 ML FLUSH IV FLUSH SCH ×2 (09:00→21:00)
[2017-02-22] MEDS ORDERED: SODIUM CHLORIDE 0.9% FLUSH 10 ML FLUSH IV FLUSH SCH (09:00)
--- NOTE | 2017-02-22 09:54 | HHI.HP ---
[facility] Service [facility] Primary Care Physician No Primary Care Physician Admission Diagnosis TIA Diagnoses: Travel History International Travel<30 Days: No Contact w/Intl Traveler <30 Da: No Traveled to Known Affected Are: No History of Present Illness Mrs. Cruz is a 26-year-old female. She is Icelandic-speaking and the interview was conducted in Icelandic. She is admitted for acute mutism. She is 30 weeks . No previous episodes have occurred like this. This occurred last night. When I see her this morning she has a return of her ability to communicate and speak. At home there is a report of an apparent catatonic episode with an acute onset of inability to speak. When evaluated by the ER physicians she was able to understand speech was tearful and scared because she still cannot speak. She was evaluated by [facility] Dr. Hidalgo in the ER and cleared for medical workup. MRI and MRA of the brain are negative. Her episode of catatonia mutism was preceded by headaches during the day. She reports no prior surgeries, no prior medical conditions other than , no pain when seen this morning, she does not smoke or drink alcohol or do illicit drugs. She feels her speech has returned back to normal this morning. No other complaints. Review of Systems Constitutional: DENIES: Fatigue, Fever, Weight loss Eyes: DENIES: Blurred vision, Diplopia Ears, nose, mouth, throat: DENIES: Hearing loss, Vertigo Respiratory: DENIES: Cough, Wheezing, Shortness of breath Cardiovascular: DENIES: Chest pain Gastrointestinal: DENIES: Abdominal pain, Black stools, Bloody stools Genitourinary: DENIES: Abnormal vaginal bleeding, Urinary incontinence Musculoskeletal: DENIES: Joint pain, Muscle aches Integumentary: DENIES: Abnormal pigmentation Hematologic/lymphatic: DENIES: Bruising Immunologic/allergic: DENIES: Eczema Neurologic: COMPLAINS OF: Speech Problems, DENIES: Abnormal gait Psychiatric: DENIES: Anxiety, Confusion Past Family Social History Past Medical History Past Surgical History None Reported Medications Reported Meds & Active Scripts Active No Active Prescriptions or Reported Medications Allergies: Coded Allergies: No Known Allergies (Unverified , 324/17) Active Ordered Medications Administered Medications Medications (Trade) Dose Ordered Sig/Germania Route PRN Reason Start Time Stop Time Status Last Admin Dose Admin Sodium Chloride (NS 1000 ml Inj) 1,000 ml @ 70 mls/hr [id number] IV 02/22/17 07:06 02/22/17 07:42 Family History None Social History No smoking No drinking alcohol No drug abuse Physical Exam Vital Signs Vital Signs Date Time Temp Pulse Resp B/P Pulse Ox O2 Delivery O2 Flow Rate FiO2 02/22/17 08:02 75 18 107/65 98 Room Air 02/22/17 01:30 98.9 76 28 104/56 99 Room Air 02/22/17 01:04 97.7 02/22/17 00:55 160 109/69 02/22/17 00:45 02/22/17 00:35 76 28 99 Room Air 02/22/17 00:30 14 Physical Exam GENERAL: NAD, A&Ox3 SKIN: Warm and dry. HEAD: Normocephalic. EYES: No scleral icterus. No injection or drainage. NECK: Supple, trachea midline. No JVD or lymphadenopathy. CARDIOVASCULAR: Regular rate and rhythm without murmurs, gallops, or rubs. RESPIRATORY: Breath sounds equal bilaterally. No accessory muscle use. GASTROINTESTINAL: Abdomen soft, non-tender, nondistended. Palpable uterus secondary to . MUSCULOSKELETAL: No cyanosis, or edema. Laboratory Laboratory Tests Test 02/22/17 02/22/17 00:38 00:50 White Blood Count 11.1 Red Blood Count 3.51 Hemoglobin 10.9 Hematocrit 31.2 Mean Corpuscular Volume 89.0 Mean Corpuscular Hemoglobin 30.9 Mean Corpuscular Hemoglobin 34.8 Concent Red Cell Distribution Width 12.7 Platelet Count 257 Mean Platelet Volume 8.2 Sodium Level 139 Potassium Level 3.3 Chloride Level 105 Carbon Dioxide Level 21.9 Anion Gap 12 Blood Urea Nitrogen 4 Creatinine 0.48 Estimat Glomerular Filtration 159 Rate Random Glucose 113 Calcium Level 8.1 Total Bilirubin 0.2 Aspartate Amino Transf 22 (AST/SGOT) Alanine Aminotransferase 19 (ALT/SGPT) Alkaline Phosphatase 162 Total Protein 6.9 Albumin 2.9 Blood Type O POSITIVE Antibody Screen NEGATIVE Urine Color YELLOW Urine Turbidity CLEAR Urine pH 6.5 Urine Specific Bronson 1.017 Urine Protein TRACE Urine Glucose (UA) 300 Urine Ketones 10 Urine Occult Blood NEG Urine Nitrite NEG Urine Bilirubin NEG Urine Urobilinogen LESS THAN 2.0 Urine Leukocyte Esterase NEG Urine RBC 1 Urine WBC 1 Urine Squamous Epithelial <1 Cells Urine Transitional Epithelial <1 Cells Urine Mucus FEW Microscopic Urinalysis Comment CULT NOT INDICATED Urine Opiates Screen NEG Urine Barbiturates Screen NEG Urine Amphetamines Screen NEG Urine Benzodiazepines Screen NEG Urine Cocaine Screen NEG Urine Cannabinoids Screen NEG Result Diagram: 02/22/173702/22/1737 Assessment and Plan Problem List: (1) Aphasia determined by examination ICD Code: R47.01 Status: Acute (2) Catatonia ICD Code: F06.1 Status: Acute (3) Mutism ICD Code: R47.01 Status: Acute Assessment and Plan Assessment and plan 26-year-old Icelandic-speaking female who is 30 weeks with acute onset of mutism and catatonia. Symptoms have resolved by this morning. Acute mutism Acute catatonia Symptoms resolved. Patient speaking abnormal baseline MRI and MRA of brain are within normal limits Monitor for any recurrence next Etiology does not appear to be CVA TIA as possible but less likely Given preceding headache and atypical migraine could've caused this versus seizure versus psychiatric etiology Neurology is following 30 weeks gestation No acute concerns from gynecology Continue following with [facility] as an outpatient DVT prophylaxis SCDs while in bed Timmy Calabrese MD Feb 22, 2017 09:54
[2017-02-22] MEDS: INSULIN ASPART SUPPLEMENTAL SCALE SQ SCH ×3 (11:00→21:00)
--- NOTE | 2017-02-22 11:34 | MB ---
cc: ANTONIO QUINTERO M.D. DATE OF CONSULTATION: 02/22/2017 REASON FOR CONSULTATION Headache, mental status change. HISTORY OF PRESENT ILLNESS This is a very pleasant 26-year-old Japanese-speaking female. The patient developed yesterday a severe headache in the frontal area. She had difficulty getting words out at that time, she had no focal weakness or numbness. History is obtained through her nurse who is able to interpret Japanese. She states she feels back to normal at the present time but has moderate frontal headache. Her speech is normal. There is no focal deficit. She does have a history of migraine headaches. PAST MEDICAL HISTORY The patient is currently 30 weeks . She has a history of migraine headaches, apparently no other past medical history. MEDICATION Her medications currently: None. NEUROLOGIC EXAMINATION VITAL SIGNS: Blood pressure 107/65, pulse 75, respirations 18, temperature 98 degrees. Higher cortical function obtained through an rim fire priming operator is normal. She feels her speech is normal at the present time. She follows commands. Cranial nerves are intact. Motor exam reveals no drift. She has got normal strength bilaterally. Reflexes symmetric. IMAGING STUDIES She had an MRI of the brain which is within normal limits. MRA of the brain is also normal. CT of the brain is within normal limits. LABORATORY DATA The white count 11,100, hemoglobin 10.9, hematocrit 31%, platelet count 257,000. Sodium is 139, potassium 3.3, chloride 105, CO2 21.9, BUN 4, creatinine 0.48, GFR 159, glucose 113, AST 22, ALT 19. Tox screen is negative. Urinalysis the pH is 6.5, specific gravity 1.017, glucose is 300, ketone is 100. IMPRESSION Suspect this may have been a migraine event. Possibility of a conversion reaction is also a consideration. I did review the MRI and MRA of the brain, there is no sign of aneurysm, there is no sign of acute infarction. The patient is neurologically stable at the present time. I feel that from a neurologic standpoint she could be discharged with no further neurologic testing required at the present time. Thank you for asking us to see this nice patient. MD KYUNG Colón/HENRIETTA /10:59 AM /11:16 AM
[2017-02-23] VITALS: BP 108/54; PULSE 87; RESP 20; TEMP 98.6; O2SAT 97
[2017-02-23 04:00] VITALS: BP 95/48; PULSE 83; RESP 20; TEMP 98.3; O2SAT 99
[2017-02-23] MEDS: INSULIN ASPART SUPPLEMENTAL SCALE SQ SCH (07:00)
[2017-02-23 07:42] LABS: HEMATOCRIT 27.3 % (35.0-46.0); MEAN CELL VOLUME 89.8 FL (80.0-100.0); MEAN CORPUSCULAR HEMOGLOBIN 30.9 PG (27.0-34.0); MEAN CORPUSCULAR HGB CONC 34.4 % (32.0-36.0); PLATELET COUNT 201 TH/MM3 (150-450); RED BLOOD COUNT 3.04 MIL/MM3 (4.00-5.30); RED CELL DISTRIBUTION WIDTH 12.7 % (11.6-17.2); REVIEW FLAG FINAL; WHITE BLOOD COUNT 9.2 TH/MM3 (4.0-11.0)
[2017-02-23 08:11] VITALS: BP 104/57; PULSE 88; RESP 18; TEMP 97.9; O2SAT 99
[2017-02-23 08:15] LABS: BICARBONATE 19.3 MEQ/L (21.0-32.0); POTASSIUM 3.5 MEQ/L (3.5-5.1)
[2017-02-23] MEDS ORDERED: ACETAMINOPHEN 500 MG CPLT PO ONE (10:00)
--- NOTE | 2017-02-23 10:18 | HHI.DS ---
Discharge Summary Admission Date Feb 22, 2017 at 04:01 Discharge Date: Feb 23, 2017 Admitting Diagnosis TIA (1) Aphasia determined by examination ICD Code: R47.01 Diagnosis: Principal (2) Catatonia ICD Code: F06.1 Diagnosis: Principal (3) Mutism ICD Code: R47.01 Diagnosis: Principal Procedures None Brief History - From Admission Mrs. Cruz is a 26-year-old female. She is Slovenian-speaking and the interview was conducted in Slovenian. She is admitted for acute mutism. She is 30 weeks . No previous episodes have occurred like this. This occurred last night. When I see her this morning she has a return of her ability to communicate and speak. At home there is a report of an apparent catatonic episode with an acute onset of inability to speak. When evaluated by the ER physicians she was able to understand speech was tearful and scared because she still cannot speak. She was evaluated by [facility] Dr. Hidalgo in the ER and cleared for medical workup. MRI and MRA of the brain are negative. Her episode of catatonia mutism was preceded by headaches during the day. She reports no prior surgeries, no prior medical conditions other than , no pain when seen this morning, she does not smoke or drink alcohol or do illicit drugs. She feels her speech has returned back to normal this morning. No other complaints. CBC/BMP: 02/23/17 0635 02/23/17 0635 Significant Findings Laboratory Tests Test 02/22/17 02/22/17 02/23/17 00:38 00:50 06:35 White Blood Count 11.1 TH/MM3 (4.0-11.0) Red Blood Count 3.51 MIL/MM3 3.04 MIL/MM3 (4.00-5.30) (4.00-5.30) Hemoglobin 10.9 GM/DL 9.4 GM/DL (11.6-15.3) (11.6-15.3) Hematocrit 31.2 % 27.3 % (35.0-46.0) (35.0-46.0) Potassium Level 3.3 MEQ/L (3.5-5.1) Blood Urea Nitrogen 4 MG/DL (7-18) 4 MG/DL (7-18) Creatinine 0.48 MG/DL 0.32 MG/DL (0.50-1.00) (0.50-1.00) Random Glucose 113 MG/DL (74-106) Calcium Level 8.1 MG/DL 8.1 MG/DL (8.5-10.1) (8.5-10.1) Alkaline Phosphatase 162 U/L (45-117) Albumin 2.9 GM/DL (3.4-5.0) Urine Glucose (UA) 300 mg/dL (NEG) Urine Ketones 10 mg/dL (NEG) Urine Mucus FEW /lpf (OCC) Chloride Level 108 MEQ/L (98-107) Carbon Dioxide Level 19.3 MEQ/L (21.0-32.0) Imaging Last Impressions Head Magnetic Resonance Angiography 02/22/17 0000 Signed Impressions: Service Date/Time: Wednesday, February 22, 2017 03:20 - CONCLUSION: Normal examination in regards to aneurysm or narrowing. Mild irregularity of the left A1 of uncertain significance likely none. Juan Luis Antonio MD Head CT 02/22/17 0000 Signed Impressions: Service Date/Time: Wednesday, February 22, 2017 01:30 - CONCLUSION: Normal examination. Juan Luis Antonio MD Brain MRI 02/22/17 0000 Signed Impressions: Service Date/Time: Wednesday, February 22, 2017 03:20 - CONCLUSION: Normal examination. Juan Luis Antonio MD PE at Discharge GENERAL: NAD, A&Ox3 SKIN: Warm and dry. HEAD: Normocephalic. EYES: No scleral icterus. No injection or drainage. NECK: Supple, trachea midline. No JVD or lymphadenopathy. CARDIOVASCULAR: Regular rate and rhythm without murmurs, gallops, or rubs. RESPIRATORY: Breath sounds equal bilaterally. No accessory muscle use. GASTROINTESTINAL: Abdomen soft, non-tender, . MUSCULOSKELETAL: No cyanosis, or edema. Hospital Course Mrs. Umaña is a 26-year-old female who is 30 weeks and was admitted with acute onset of catatonia and mutism. Her mutism persisted longer than a catatonia. By the morning following admission she had returned to baseline. She was monitored for 24 hours after this and had no recurrence of her symptoms. No hypertension and no significant proteinuria. Medically she is stable for discharge to home today. She'll follow up with OB as an outpatient. Pt Condition on Discharge: Stable Discharge Disposition: Discharge Home Discharge Time: <= 30 minutes Discharge Instructions DIET: Follow Instructions for: As Tolerated, No Restrictions Activities you can perform: Regular-No Restrictions Timmy Calabrese MD Feb 23, 2017 10:18
[2017-02-23 10:48] VITALS: PULSE 82
[2017-02-27 10:16] LABS: BATH SALTS (MDPV) UR NEG (NEG); ECSTASY (MDMA) UR NEG (NEG); GABAPENTIN UR NEG (NEG); HEROIN (6-ACETYLMORPHINE) UR NEG (NEG); HYDROMORPHONE U NEG (NEG); K2 SPICE UR NEG (NEG); OBMETHADONE UR NEG (NEG); OXYCODONE (PERCODAN) NEG (NEG); PHENCYCLIDINE URINE NEG (NEG)
== END 2017-02-23 11:01 | disposition home or self-care (01) ==
LOC: HOBED 00:32 → NEDA 04:01 → N05B 08:12
PROVIDERS: ADMIT Hospitalist; ATTEND Hospitalist
DX: O99.343 Other mental disorders complicating pregnancy, third trimester (principal); F20.2 Catatonic schizophrenia; O26.893 Other specified pregnancy related conditions, third trimester; R47.01 Aphasia; R51 Headache; Z3A.30 30 weeks gestation of pregnancy
CPT/HCPCS: 70450; 70544; 70551; 76937; 80048; 80053; 80307; 81001; 82948; 85027; 86850; 86900; 86901; 92610; 96360; 96361; 99285; G0378; G0481; G8996; G8997; G8998; J7030; J7120

== ENCOUNTER 2017-04-25 20:21 | Emergency (ER) | payer MEDICAID ==
--- NOTE | 2017-04-25 21:44 | PD ---
HPI Chief Complaint sent from [facility] office for evaluation of amniotic fluid Date Seen: Apr 25, 2017 Time Seen: 21:25 Travel History International Travel<30 Days: No Contact w/Intl Traveler<30Days: No Known Affected Area: No History of Present Illness HPI Pt is a 26 y/o G1 with IUP at 39.5 wks who was seen for routine OB visit today at [facility] and u/s was performed secondary to FH measurement of 36 cm. Per office note, FABIAN measuring "36 and 39.5" Pt reports occ contractions. denies vb, lof. +FM Pt is faroese speaking only. Imani Jett RN, translated. Para: 0 : 1 History Past Medical History Narrative Medical anemia Obstetric History Obstetric History G1 records reviewed: Rh +, h/o chlamydia with neg JESSICA Past Surgical History Surgical History: No Previous Surgery Family History Family History: Negative Social History Alcohol Use: No Tobacco Use: No Substance Abuse: No Allergies-Medications (Allergen,Severity, Reaction): Coded Allergies: No Known Allergies (Unverified , 04/25/17) Narrative Medication PNV Review of Systems General / Constitutional: No: Fever, Weight Gain, Weight Loss, Chills, Other Eyes: No: Diploplia, Blurred Vision, Visual changes, Pain, Photophobia, Other HENT: No: Headaches, Vertigo, Dental Difficulties, Lightheadedness, Other Cardiovascular: No: Irregular Rhythm, Chest Pain or Discomfort, Palpitations, Tachycardia, Syncope, Varicosities, Edema, Cyanosis, Other Respiratory: No: Cough, Short of Breath, Wheezing, Other Gastrointestinal: No: Nausea, Vomiting, Diarrhea, Abdominal Pain, Hematemesis, Hematochezia, Constipation, Changes in Bowel Habits, Indigestion, Loss of Appetite, Other Genitourinary: No: Urgency, Frequency, Dysuria, Nocturia, Hematuria, Decreased Urinary Output, Oliguria, Hesitancy, Dribbling, Incontinence, Pelvic Pain, Dyspareunia, Discharge, Menorrhagia, Vaginal Bleeding, Other Musculoskeletal: No: Limited ROM, Weakness, Cramping, Edema, Pain, Other Skin: No Rash, No Itching, No Dryness, No Lumps, No Change in Pigmentation, No Change in Nails, No Alopecia, No Lesions, No Breast Lumps, No Breast Tenderness , No Breast Swelling, No Other Neurologic: No: Weakness, Dizziness, Syncope, Focal Abnormalities, Coordination Problem, Headache, Slurred Speech, Seizures, Other Psychiatric: No: Anxiety, Depression, Suicidal Ideations, Disorder of Thought, Mood Disorder, Substance Abuse, Homicidal Ideation, Other Endocrine: No: Heat Intolerance, Cold Intolerance, Polydipsia, Polyuria, Other Hematologic/Lymphatic: No Easy Bruising, No Lymph Node Enlargement, No Other Physical Exam 116/67, 76, 18, 98.4 Narrative GENERAL: Well-nourished, well-developed patient. SKIN: Warm and dry. HEAD: Normocephalic and atraumatic. EYES: No scleral icterus. No injection or drainage. ENT: No nasal drainage noted. Mucous membranes pink. Airway patent. NECK: Supple, trachea midline. No JVD. CARDIOVASCULAR: Regular rate and rhythm without murmurs, gallops, or rubs. RESPIRATORY: Breath sounds equal bilaterally. No accessory muscle use. BREASTS: Bilateral exam showed no masses , no retractions, no nipple discharge. ABDOMEN/GI: Abdomen soft, non-tender, bowel sounds present, no rebound, no guarding Gravid GENITOURINARY: External Genitalia: intact and normal in appearance BUS glands: [wnl] Cervix: posterior Dilatation: 1 Effacement: 50 Station: -3 Presentation: [facility] Membranes: intact, amnisure negative Uterine Contractions: irregular FHT's: Category: 1 Baseline: 140 Reactive: yes Variability: mod Decels: none EXTREMITIES: No cyanosis or edema. BACK: Nontender without obvious deformity. No CVA tenderness. NEUROLOGICAL: Awake and alert. Motor and sensory grossly within normal limits. Five out of 5 muscle strength in all muscle groups. Normal speech. Data Data Vital Signs Reviewed: Yes Orders Vital Signs (Adult) .ON ADMISSION (04/25/17 21:20) ^ Labor Status (04/25/17 21:20) Us Ob Bpp Wo Nst (04/26/17 10:00) Labs ultrasound: FABIAN: 4.4/1.7/0/0=6.1 4.6/1.9/0/0=6.5 + gross movement + flexion extension + breathing 06/27 BPP MDM Medical Record Reviewed: Yes Narrative Course / MDM 26 y/o G1 with IUP at 39.5 wks sent for evaluation of suspected oligohydramnios --low normal fluid noted on u/s today (FABIAN 6.5) with 06/27 bpp --no evidence of labor or SROM (amnisure neg) --will have patient return tomorrow for official u/s with OB diagnostics --labor precautions, [facility] Diagnosis Diagnosis: Primary Impression: 39 weeks gestation of Additional Impression: No leakage of amniotic fluid into vagina Disposition: 01 DISCHARGE HOME Condition: Stable Patient Instructions: Abdominal Pain in (ED), Movement (ED) Additional Instructions: come back tomorrow morning at 10.00 oclock in the morning for ultrasound Departure Forms: Tests/Procedures Tamela Ruvalcaba MD Apr 25, 2017 21:44
[2017-04-26] MEDS ORDERED: PREN29TA PO ×2 (18:52)
[2017-04-26] MEDS ORDERED: tylenol PO ×2 (18:52)
== END 2017-04-25 22:00 | disposition home or self-care (01) ==
LOC: HOBED 20:21 → MERGE 20:21 → HOBED 22:00
DX: O47.1 False labor at or after 37 completed weeks of gestation (principal); O99.013 Anemia complicating pregnancy, third trimester; Z3A.39 39 weeks gestation of pregnancy
CPT/HCPCS: 59025; 76815; 84112

== ENCOUNTER 2017-04-26 10:03 | Inpatient (IN) | payer MEDICAID ==
[2017-04-26] VITALS (45 sets, daily range): BP systolic 109–128; BP diastolic 62–76; PULSE 65–110; RESP 16–20; TEMP 97.7–98.3
[~2017-04-26] VITALS: Ht 137.2 cm; Wt 55.0 kg
--- NOTE | 2017-04-26 10:24 | HHI.HP ---
History & Physical H&P HPI Chief Complaint Called patient to come in for ultrasound with OB diagnostics because of possible oligohydramnios noted on bedside ultrasound Date Seen: Feb 24, 2017 Travel History International Travel<30 Days: No Contact w/Intl Traveler<30Days: No Known Affected Area: No History of Present Illness HPI Patient 26-year-old at 39/6 weeks gestation who presents after I called her and requested that she come in for a formal ultrasound with OB diagnostics after bedside ultrasound last night showed possible oligohydramnios. She reports some mild lower abdominal and back pain, but doesn 't know if she is having contractions. She denies any leakage of fluid or vaginal bleeding. She reports movement. Para: 0 : 1 History Past Medical History Medical History: Denies Significant Hx; was last seen in the emergency department for mutism Social History Alcohol Use: No Tobacco Use: No Substance Abuse: No Allergies-Medications (Allergen,Severity, Reaction): Coded Allergies: No Known Allergies (Unverified , 12/09/16) Home Meds Active Scripts Ondansetron Odt (Zofran Odt)4 Mg Tab4 Mg SL Q6HR PRN (Nausea/Vomiting) #5 TAB Ref 0 Prov:Tra Jones MD 12/09/16 Hydrocodone-Acetaminophen (Lortab)5-325 Mg Tab1 Tab PO Q6H PRN (PAIN) #12 TAB Ref 0 Prov:Tra Jones MD 12/09/16 Cephalexin (Keflex)500 Mg Yoa632 Mg PO Q8H #21 CAP Ref 0 Prov:Tra Jones MD 12/09/16 Physical Exam Narrative GENERAL: Well-nourished, well-developed patient. SKIN: Warm and dry. HEAD: Normocephalic and atraumatic. EYES: No scleral icterus. No injection or drainage. Pupils are not dilated and equal and reactive ENT: No nasal drainage noted. Mucous membranes pink. Airway patent. NECK: Supple, trachea midline. No JVD. CARDIOVASCULAR: Regular rate and rhythm without murmurs, gallops, or rubs. RESPIRATORY: Breath sounds equal bilaterally. No accessory muscle use. ABDOMEN/GI: Abdomen soft, non-tender, bowel sounds present, no rebound, no guarding Gravid to [-40] weeks size Presentation: [Backdown transverse with the head to the left-] Membranes: [intact ] Uterine Contractions: 1 noted within 10 minutes FHT's: Category: [1-] Baseline: [-140] Reactive: [-yes] Variability: [mod-] Decels: [0-] EXTREMITIES: No cyanosis or edema. BACK: Nontender without obvious deformity. No CVA tenderness. NEUROLOGICAL: Apparently a large mental status change back to baseline. Patient now able to speak and will move voluntarily. Data Data From last night: Bedside ultrasound done with male fetus in a backdown transverse lie with the head to the left gestational age of 30 weeks 3 days by the growth parameters, posterior placenta and adequate amniotic fluid, no gross abnormalities and anatomy scan estimated weight 1505 gm Laboratory Tests Test 02/22/17 00:38 White Blood Count 11.1 Red Blood Count 3.51 Hemoglobin 10.9 Hematocrit 31.2 Mean Corpuscular Volume 89.0 Mean Corpuscular Hemoglobin 30.9 Mean Corpuscular Hemoglobin 34.8 Concent Red Cell Distribution Width 12.7 Platelet Count 257 Mean Platelet Volume 8.2 MDM Interpretation(s) Patient 26-year-old at 30 weeks gestation who presents after I called her and requested that she come in for a formal ultrasound with OB diagnostics after bedside ultrasound showed possible oligohydramnios. Plan 1. possible oligo - Plan for this patient to get a formal ultrasound with OB diagnostics after bedside ultrasound showed possible oligohydramnios. - Monitor vitals, labor status, heart rate d/w Dr. Ruvalcaba and Dr. Hatch Addendum: Dr. Hatch discussed case with M Dr. Munguia. Baby with noted PACs. Cardiac anatomy normal. Agreed to start induction of labor. labs normal. GBS negative. Diagnosis Diagnosis: Rule out oligohydramnios based on bedside ultrasound last night; PAC's Condition: Stable (Alonzo Anderson MD R2) Attestation Patient seen and examined at bedside. Cervix- 1/50/-3. D/w patient via airframe and power plant mechanic current diagnosis and plan. R/B/A reviewed. Plan for induction via cervidil placement. (Alysia Hatch MD) Alonzo Anderson MD R2 Apr 26, 2017 10:24 Alysia Hatch MD Apr 26, 2017 13:06
[2017-04-26] MEDS ORDERED: LACTATED RINGER'S 1000 ML INJ 1,000 ML IV PRN (12:32)
[2017-04-26] MEDS ORDERED: LIDOCAINE HCL 1% 50 ML VIAL I-DERMAL PRN (12:45)
[2017-04-26] MEDS ORDERED: LIDOCAINE HCL 1% 50 ML VIAL INFIL PRN (12:45)
[2017-04-26] MEDS ORDERED: SODIUM CHLORID 0.9% 500 ML INJ 500 ML IV PRN (12:45)
[2017-04-26] MEDS ORDERED: MINERAL OIL 10 ML VIAL TOPICAL PRN (12:45)
[2017-04-26] MEDS ORDERED: ONDANSETRON HCL 4 MG/2 ML VIAL IV PRN (12:45)
[2017-04-26] MEDS ORDERED: SODIUM CHLOR 0.9% 1000 ML INJ 1,000 ML IV PRN (12:52)
[2017-04-26] MEDS ORDERED: OXYTOCIN 30 UNITS-500ML PREMIX 500 ML IV ONE (13:00)
[2017-04-26] MEDS ORDERED: CITRIC ACID-SODIUM CITRATE LIQ 30 ML UDC PO SCH (13:00)
--- NOTE | 2017-04-26 13:03 | PD ---
History of Present Illness Date Seen: Apr 26, 2017 Time Seen: 10:00 History of Present Illness History & Physical History & Physical H&P HPI Chief Complaint Called patient to come in for ultrasound with OB diagnostics because of possible oligohydramnios noted on bedside ultrasound Date Seen: Feb 24, 2017 Travel History International Travel<30 Days: No Contact w/Intl Traveler<30Days: No Known Affected Area: No History of Present Illness HPI Patient 26-year-old at 39/6 weeks gestation who presents after I called her and requested that she come in for a formal ultrasound with OB diagnostics after bedside ultrasound last night showed possible oligohydramnios. She reports some mild lower abdominal and back pain, but doesn 't know if she is having contractions. She denies any leakage of fluid or vaginal bleeding. She reports movement. Para: 0 : 1 History Past Medical History Medical History: Denies Significant Hx; was last seen in the emergency department for mutism Social History Alcohol Use: No Tobacco Use: No Substance Abuse: No Allergies-Medications (Allergen,Severity, Reaction): Coded Allergies: No Known Allergies (Unverified , 12/09/16) Home Meds Active Scripts Ondansetron Odt (Zofran Odt)4 Mg Tab4 Mg SL Q6HR PRN (Nausea/Vomiting) #5 TAB Ref 0 Prov:Tra Jones MD 12/09/16 Hydrocodone-Acetaminophen (Lortab)5-325 Mg Tab1 Tab PO Q6H PRN (PAIN) #12 TAB Ref 0 Prov:Tra Jones MD 12/09/16 Cephalexin (Keflex)500 Mg Bpm475 Mg PO Q8H #21 CAP Ref 0 Prov:Tra Jones MD 12/09/16 Physical Exam Narrative GENERAL: Well-nourished, well-developed patient. SKIN: Warm and dry. HEAD: Normocephalic and atraumatic. EYES: No scleral icterus. No injection or drainage. Pupils are not dilated and equal and reactive ENT: No nasal drainage noted. Mucous membranes pink. Airway patent. NECK: Supple, trachea midline. No JVD. CARDIOVASCULAR: Regular rate and rhythm without murmurs, gallops, or rubs. RESPIRATORY: Breath sounds equal bilaterally. No accessory muscle use. ABDOMEN/GI: Abdomen soft, non-tender, bowel sounds present, no rebound, no guarding Gravid to [-40] weeks size Presentation: [Backdown transverse with the head to the left-] Membranes: [intact ] Uterine Contractions: 1 noted within 10 minutes FHT's: Category: [1-] Baseline: [-140] Reactive: [-yes] Variability: [mod-] Decels: [0-] EXTREMITIES: No cyanosis or edema. BACK: Nontender without obvious deformity. No CVA tenderness. NEUROLOGICAL: Apparently a large mental status change back to baseline. Patient now able to speak and will move voluntarily. Data Data From last night: Bedside ultrasound done with male fetus in a backdown transverse lie with the head to the left gestational age of 30 weeks 3 days by the growth parameters, posterior placenta and adequate amniotic fluid, no gross abnormalities and anatomy scan estimated weight 1505 gm Laboratory Tests Test 02/22/17 00:38 White Blood Count 11.1 Red Blood Count 3.51 Hemoglobin 10.9 Hematocrit 31.2 Mean Corpuscular Volume 89.0 Mean Corpuscular Hemoglobin 30.9 Mean Corpuscular Hemoglobin 34.8 Concent Red Cell Distribution Width 12.7 Platelet Count 257 Mean Platelet Volume 8.2 MDM Interpretation(s) Patient 26-year-old at 30 weeks gestation who presents after I called her and requested that she come in for a formal ultrasound with OB diagnostics after bedside ultrasound showed possible oligohydramnios. Plan 1. possible oligo - Plan for this patient to get a formal ultrasound with OB diagnostics after bedside ultrasound showed possible oligohydramnios. - Monitor vitals, labor status, heart rate d/w Dr. Dr. Hatch Addendum: Dr. Hatch discussed case with M Dr. Munguia. Baby with noted PACs. Cardiac anatomy normal. Agreed to start induction of labor. labs normal. GBS negative. Diagnosis Diagnosis: Rule out oligohydramnios based on bedside ultrasound last night; PAC's Condition: Stable Alonzo Anderson MD R2 Apr 26, 2017 13:03
[2017-04-26] MEDS ORDERED: DINOPROSTONE 10 MG VAG INSERT VAGINAL ONE (14:15)
[2017-04-26 14:34] LABS: BACTERIA, URINE MANY /hpf; BLOOD, URINE NEG (NEG); COMMENT (UR) CULTURE INDICATED; CULTURE IF INDICATED CULTURE INDICATED; GLUCOSE,URINE NEG (NEG); KETONE, URINE NEG (NEG); NITRITE,URINE NEG (NEG); SQUAMOUS EPITHELIAL CELL URINE 3 /hpf (0-5); URINE COLOR LIGHT-YELLOW (YELLW/STRAW)
[2017-04-26] MEDS: LACTATED RINGER'S 1000 ML INJ 1,000 ML IV SCH ×2 (15:47→17:04)
[2017-04-26 16:49] LABS: AUTOMATED NEUTROPHIL # 6.8 TH/MM3 (1.8-7.7); BASOPHIL % 0.4 % (0.0-2.0); EOSINOPHIL # 0.1 TH/MM3 (0-0.4); EOSINOPHIL % 0.6 % (0.0-4.0); HEMATOCRIT 38.1 % (35.0-46.0); HEMO FLAGS DIFF FINAL; LYMPH % 16.9 % (9.0-44.0); LYMPHOCYTE # 1.5 TH/MM3 (1.0-4.8); MEAN CELL VOLUME 88.8 FL (80.0-100.0); MEAN CORPUSCULAR HEMOGLOBIN 30.7 PG (27.0-34.0); MEAN CORPUSCULAR HGB CONC 34.5 % (32.0-36.0); MONO % 7.4 % (0.0-8.0); NEUT % 74.7 % (16.0-70.0); PLATELET COUNT 148 TH/MM3 (150-450); RED BLOOD COUNT 4.29 MIL/MM3 (4.00-5.30); RED CELL DISTRIBUTION WIDTH 18.1 % (11.6-17.2); WHITE BLOOD COUNT 9.2 TH/MM3 (4.0-11.0)
[2017-04-26] MEDS ORDERED: tylenol PO (18:52)
[2017-04-26] MEDS ORDERED: PREN29TA PO (18:52)
[2017-04-27] VITALS (137 sets, daily range): BP systolic 73–141; BP diastolic 35–96; PULSE 64–121; RESP 1–20; TEMP 97.9–99; O2SAT 95–100
[2017-04-27] MEDS: LACTATED RINGER'S 1000 ML INJ 1,000 ML IV SCH ×3 (00:31→06:12)
[2017-04-27] MEDS ORDERED: fentaNYL 2MCG-BUPIV 0.125% INJ 100 ML ONE (02:57)
[2017-04-27] MEDS ORDERED: NO SYSTEM NARCOTICS PRN (06:15)
[2017-04-27] MEDS ORDERED: ePHEDrine/NS 25 MG/5 ML SYR IV PRN (06:15)
[2017-04-27] MEDS ORDERED: DO NOT ADMINISTER ANTICOAGULANTS PRN (06:15)
[2017-04-27] MEDS: fentaNYL 2MCG-BUPIV 0.125% 100 ML EPIDURAL SCH ×2 (06:55→09:35)
[2017-04-27] MEDS ORDERED: OXYTOCIN 30 UNITS-500ML PREMIX 500 ML ONE (07:51)
[2017-04-27 11:33] LABS: BLOOD GAS O2 HGB SATURATION 20 % (90-100); CORD BLOOD GAS HCO3 20 mmol/L (21-29); CORD BLOOD GAS PCO2 59 mmHG (34-78); CORD BLOOD GAS PH 7.16 (7.14-7.42); CORD BLOOD GAS PO2 20 mmHG (3.0-40.0); DRAW SITE CORD BLOOD; STAT NO
--- NOTE | 2017-04-27 11:57 | PD.OB.DELI ---
Delivery Date: Apr 27, 2017 Anesthesia: Epidural Episiotomy: Midline Vaginal Delivery: Forceps Presentation: Occiput anterior Nuchal Cord: None Delayed cord clamping (45 sec): No Infant: Male One Minute : 6 Five Minute : 8 Weight: 3440 gm Placenta: Spontaneous delivery, Intact Laceration: Episiotomy, 3 deg Repair: Vicryl interrupted, Vicryl running Estimated blood loss: 500 Additional Information This primiparous patient was pushing with a significant blood loss from the posterior fourchette from a small tear that was and a small artery and it was just bleeding quite profusely. The bleeding was from the posterior fourchette not from above that. Also the patient had maternal exhaustion and inability to push she was coached in her own language and still could not generate significant force when she pushed the baby's head was brought to a +2 station with a At a +3 through the introitus. The vice president global digital marketing was allowed to use a vacuum extractor and on the head and unfortunately popped off 3 times just due to the tightness of the baby's head in the maternal outlet, however the baby's head was sitting at +3 so at this point and so Adiel-Terra forceps were applied to the head very easily and delivered with minimal traction and no complication. The midline episiotomy that had been used extended with third degree with the disruption of the anal sphincter which was repaired easily and interrupted Vicryl sutures. And the remaining repair was similar to a regular episiotomy repair in the usual fashion with 2-0 chromic in a running suture. The rectum was checked multiple times was no fourth degree and no pop through hole in that structure Charles Hidalgo II, MD Apr 27, 2017 11:57
[2017-04-27] MEDS ORDERED: ONDANSETRON ODT 4 MG TAB PO PRN (12:00)
[2017-04-27] MEDS ORDERED: BENZOCAINE 20% TOPICAL SPRAY 60 ML CAN TOPICAL PRN (12:00)
[2017-04-27] MEDS ORDERED: OXYTOCIN 30 UNITS-500ML PREMIX 500 ML IV SCH (12:00)
[2017-04-27] MEDS ORDERED: DOCUSATE SODIUM 50 MG/SENNA 8.6 MG TAB PO PRN (12:00)
[2017-04-27] MEDS ORDERED: SODIUM CHLORIDE 0.9% FLUSH 10 ML FLUSH IV FLUSH PRN (12:00)
[2017-04-27] MEDS ORDERED: WITCH HAZEL 50%/GLYCERIN 12.5% 40 PAD JAR TOPICAL PRN (12:00)
[2017-04-27] MEDS ORDERED: ACETAMINOPHEN 325 MG TAB PO PRN (12:00)
[2017-04-27] MEDS ORDERED: ZOLPIDEM TARTRATE 5 MG TAB PO PRN (12:00)
[2017-04-27] MEDS ORDERED: ALUMINUM/MAGNESIUM/SIMETH 30 ML CUP PO PRN (12:00)
[2017-04-27] MEDS: IBUPROFEN 600 MG TAB PO PRN ×2 (12:33→18:52)
[2017-04-27] MEDS: oxyCODONE/ACETAMINOPHEN 5 MG/325 MG TAB PO PRN (12:33)
[2017-04-27 14:15] LABS: HEMATOCRIT 23.9 % (35.0-46.0); REVIEW FLAG FINAL
[2017-04-27] MEDS ORDERED: MEASLES, MUMPS, RUBELLA VACCINE 0.5 ML VIAL SQ ONE (16:00)
[2017-04-27] MEDS ORDERED: DIPHTH/TETANUS/ACEL PERTUSSIS (BOOSTER) 0.5 ML VIAL/PFS IM ONE (16:00)
[2017-04-27] MEDS: DOCUSATE SODIUM 100 MG CAP PO SCH (20:52)
[2017-04-27] MEDS ORDERED: SODIUM CHLORIDE 0.9% FLUSH 10 ML FLUSH IV FLUSH SCH (21:00)
[2017-04-28] VITALS (10 sets, daily range): BP systolic 84–113; BP diastolic 53–70; PULSE 77–115; RESP 16–18; TEMP 97.9–98.7; O2SAT 98–99
[2017-04-28] MEDS: oxyCODONE/ACETAMINOPHEN 5 MG/325 MG TAB PO PRN ×5 (01:02→19:46)
[2017-04-28] MEDS: IBUPROFEN 600 MG TAB PO PRN ×2 (01:02→06:38)
[2017-04-28 05:52] LABS: MEAN CELL VOLUME 89.4 FL (80.0-100.0); MEAN CORPUSCULAR HEMOGLOBIN 30.4 PG (27.0-34.0); PLATELET COUNT 113 TH/MM3 (150-450); RED BLOOD COUNT 1.89 MIL/MM3 (4.00-5.30); RED CELL DISTRIBUTION WIDTH 17.9 % (11.6-17.2); WHITE BLOOD COUNT 15.9 TH/MM3 (4.0-11.0)
[2017-04-28 05:57] LABS: REVIEW FLAG FINAL
[2017-04-28 05:59] LABS: HEMATOCRIT 16.9 % (35.0-46.0)
[2017-04-28] MEDS ORDERED: MORPHINE SULFATE 4 MG/ML INJ IV PRN (07:15)
[2017-04-28] MEDS ORDERED: oxyCODONE/ACETAMINOPHEN 5 MG/325 MG TAB PO PRN (07:15)
[2017-04-28] MEDS ORDERED: NALOXONE HCL 0.4 MG/ML AMP IV PRN (07:15)
[2017-04-28] MEDS ORDERED: oxyCODONE/ACETAMINOPHEN 10 MG/325 MG TAB PO PRN ×2 (07:15→10:30)
[2017-04-28] MEDS ORDERED: FUROSEMIDE 20 MG/2 ML VIAL IV ONE (07:15)
[2017-04-28] MEDS ORDERED: ACETAMINOPHEN 325 MG TAB PO PRN (07:15)
[2017-04-28] MEDS ORDERED: diphenhydrAMINE HCL 25 MG CAP PO PRN (07:15)
[2017-04-28] MEDS ORDERED: SODIUM CHLOR 0.9% 250 ML INJ 250 ML IV ONE (07:15)
--- NOTE | 2017-04-28 08:47 | HHI.OB ---
Subjective Post Day: 1 Remarks Patient is a 26-year-old delivered at 40 weeks and 0 days. Patient is day 1 after . Patient's pain is not well-controlled. Patient reports eating and drinking without any nausea or vomiting. Patient reports minimal bleeding. Patient has passed gas but no bowel movements. Patient is walking without lower extremity pain or shortness of breath. Patient reports desire for contraception with Depo shot and bottle- and breast-feeding. Objective Vitals/I&O Vital Signs Date Time Temp Pulse Resp B/P Pulse Ox O2 Delivery O2 Flow Rate FiO2 04/28/17 02:02 18 04/28/17 02:02 18 04/27/17 21:52 18 04/27/17 21:12 79 107/55 04/27/17 21:12 98.2 16 04/27/17 17:25 98.2 04/27/17 17:25 82 16 91/57 04/27/17 14:45 72 04/27/17 14:45 72 108/49 99 04/27/17 14:35 72 100 04/27/17 14:30 71 04/27/17 14:30 71 107/55 100 04/27/17 14:15 76 109/50 100 04/27/17 14:15 72 04/27/17 14:00 69 04/27/17 14:00 72 100/48 100 04/27/17 13:53 64 95/42 04/27/17 13:48 85 73/35 04/27/17 13:45 101 96/59 04/27/17 13:31 92 89/50 04/27/17 13:25 102 98 04/27/17 13:20 86 98 04/27/17 13:15 96 102/54 100 04/27/17 13:15 90 04/27/17 13:10 91 100 04/27/17 13:05 95 100 04/27/17 13:00 95 04/27/17 13:00 95 100/52 99 04/27/17 12:55 91 99 04/27/17 12:50 84 99 04/27/17 12:48 14 04/27/17 12:45 90 97/51 99 04/27/17 12:45 89 04/27/17 12:40 82 99 04/27/17 12:35 83 99 04/27/17 12:30 14 04/27/17 12:30 83 90/51 99 04/27/17 12:30 80 04/27/17 12:30 1 04/27/17 12:30 13 04/27/17 12:25 85 99 04/27/17 12:20 82 99 04/27/17 12:15 86 80/42 99 04/27/17 12:15 87 04/27/17 12:13 15 04/27/17 12:10 86 95 04/27/17 12:05 79 99 04/27/17 12:00 84 89/44 99 04/27/17 12:00 72 04/27/17 12:00 97.9 04/27/17 11:56 84 91/45 04/27/17 11:55 80 99 04/27/17 11:50 86 100 04/27/17 11:48 14 98 04/27/17 11:45 14 04/27/17 11:45 82 93/49 04/27/17 11:30 76 81/47 04/27/17 11:16 101 92/56 04/27/17 11:10 121 04/27/17 11:05 98 04/27/17 11:00 77 04/27/17 11:00 93 116/85 04/27/17 10:45 108 113/75 04/27/17 10:45 117 04/27/17 10:40 97 04/27/17 10:35 95 04/27/17 10:30 85 04/27/17 10:30 87 121/86 04/27/17 10:25 97 04/27/17 10:20 90 04/27/17 10:15 95 135/96 04/27/17 10:15 102 04/27/17 10:15 20 04/27/17 10:00 83 04/27/17 10:00 85 137/92 04/27/17 09:50 83 04/27/17 09:45 89 135/83 04/27/17 09:45 85 04/27/17 09:40 89 04/27/17 09:35 87 04/27/17 09:34 20 04/27/17 09:30 98 130/84 04/27/17 09:30 93 04/27/17 09:25 83 04/27/17 09:20 84 04/27/17 09:15 98.6 04/27/17 09:15 89 04/27/17 09:15 83 116/86 04/27/17 09:10 83 04/27/17 09:05 87 04/27/17 09:00 92 124/65 04/27/17 09:00 77 04/27/17 08:55 82 04/27/17 08:50 85 04/27/17 08:45 85 120/72 04/27/17 08:45 87 Objective Remarks GENERAL: Well-nourished, well-developed patient. CARDIOVASCULAR: Regular rate and rhythm without murmurs, gallops, or rubs. RESPIRATORY: Breath sounds equal bilaterally. No accessory muscle use. ABDOMEN/GI: Abdomen soft, non-tender. Fundus: Firm, non-tender at umbilicus. GENITOURINARY: Light to moderate bleeding. EXTREMITIES: No cyanosis or edema, non-tender, without signs of DVT. Medications and IVs Current Medications Medications (Trade) Dose Ordered Sig/Germania Route Start Time Stop Time Status Last Admin Lactated Ringer's 1,000 ml @ 125 mls/hr Q8H IV 04/26/17 12:32 04/27/17 06:12 Lactated Ringer's 1,000 ml @ 3,000 mls/hr Q20M PRN IV 04/26/17 12:32 (NS 1000 ml Inj) 1,000 ml @ 100 mls/hr Q10H PRN IV 04/26/17 12:52 (Zofran Inj) 4 mg Q6H PRN IV 04/26/17 12:45 04/26/17 23:14 Mineral Oil 10 ml 10 ml UNSCH PRN TOPICAL 04/26/17 12:45 (fentaNYL 2MCG-BUPIV 0.125% INJ) 100 ml @ 0 mls/hr TITRATE EPIDURAL 04/27/17 06:15 04/27/17 09:35 (NS Flush) 2 ml BID IV FLUSH 04/27/17 21:00 (NS Flush) 2 ml UNSCH PRN IV FLUSH 04/27/17 12:00 (Americaine 20% Top Spr) 1 spray Q4H PRN TOPICAL 04/27/17 12:00 04/27/17 12:33 (Tucks Pads) 1 applic QID PRN TOPICAL 04/27/17 12:00 04/27/17 12:33 (Adwoa-Colace) 2 tab Q12H PRN PO 04/27/17 12:00 (Ambien) 5 mg HS PRN PO 04/27/17 12:00 (Mag-Al Plus Susp Liq) 15 ml Q8H PRN PO 04/27/17 12:00 (Zofran Odt) 4 mg Q6H PRN PO 04/27/17 12:00 Docusate Sodium 100 mg 100 mg BID PO 04/27/17 21:00 04/27/17 20:52 (NS 250 ml Inj) 250 ml @ 15 mls/hr ONCE ONCE IV 04/28/17 07:15 04/28/17 23:54 (Tylenol) 650 mg Q4H PRN PO 04/28/17 07:15 04/28/17 11:16 (Benadryl) 25 mg Q4H PRN PO 04/28/17 07:15 04/28/17 11:16 (Motrin) 400 mg Q6H PRN PO 04/28/17 07:15 (Percocet 5-325 Mg) 1 tab Q6H PRN PO 04/28/17 07:15 (Morphine Inj) 4 mg Q3H PRN IV 04/28/17 07:15 (Narcan Inj) 0.4 mg UNSCH PRN IV 04/28/17 07:15 (Percocet 10-325 Mg) 2 tab Q6H PRN PO 04/28/17 13:15 Assessment/Plan Problem List: (1) (spontaneous vaginal delivery) (2) Acute blood loss anemia Assessment and Plan Patient is a 26-year-old delivered at 40 weeks and 0 days. Patient is day 1 after . Patient was counseled to do 6 weeks of pelvic rest. Patient was counseled to follow up in 6 weeks. Patient requested follow-up and contraception. 1. Acute blood loss anemia with a hemoglobin of 5.8 this morning. Patient presented with a hemoglobin of 13.2, which trended down to 8.0 after delivery. 3 units of PRBC ordered Will follow-up H&H after blood transfusion 2. Routine care --AF VSS --Continue routine care --Motrin and Percocet when necessary for pain, morphine for breakthrough pain --Encourage OOB --Pelvic rest for 6 weeks will need follow-up appointment at that time. --Contraception: Depo-Provera --Anticipate discharge tomorrow d/w Dr. Hidalgo. Alonzo Anderson MD R2 Apr 28, 2017 08:47
[2017-04-28] MEDS: DOCUSATE SODIUM 100 MG CAP PO SCH ×2 (11:00→20:39)
[2017-04-28] MEDS: LACTATED RINGER'S 1000 ML INJ 1,000 ML IV SCH (12:32)
[2017-04-28 16:01] LABS: ALT (GPT) 12 U/L (10-53); ANION GAP 9 MEQ/L (5-15); AST (GOT) 25 U/L (15-37); BICARBONATE 24.3 MEQ/L (21.0-32.0); BLOOD UREA NITROGEN 9 MG/DL (7-18); CHLORIDE 109 MEQ/L (98-107); GLOMERULAR FILTRATION RATE 133 ML/MIN (>89); POTASSIUM 3.6 MEQ/L (3.5-5.1); SODIUM (NA) 142 MEQ/L (136-145)
[2017-04-28 16:04] LABS: ALKALINE PHOSPHATASE 142 U/L (45-117); TOTAL BILIRUBIN ADULT 0.8 MG/DL (0.2-1.0)
[2017-04-28] MEDS: IBUPROFEN 400 MG TAB PO PRN (17:07)
[2017-04-28 23:53] LABS: REVIEW FLAG FINAL
[2017-04-29] MEDS: IBUPROFEN 400 MG TAB PO PRN ×2 (02:26→09:34)
[2017-04-29] MEDS: oxyCODONE/ACETAMINOPHEN 5 MG/325 MG TAB PO PRN ×2 (02:26→09:34)
[2017-04-29 08:00] VITALS: BP 107/61; PULSE 73; RESP 16; TEMP 98.2
--- NOTE | 2017-04-29 08:39 | HHI.OB ---
Subjective Post Day: 2 Remarks Patient is a 26-year-old delivered at 40 weeks and 0 days. Patient is day 1 after . Patient's pain is well-controlled. Patient reports eating and drinking without any nausea or vomiting. Patient reports minimal bleeding. Patient has passed gas but no bowel movements. Patient is walking without lower extremity pain or shortness of breath or chest pain. She denies any feelings of depression. Patient reports desire for contraception and bottle - and breast-feeding. Objective Vitals/I&O Vital Signs Date Time Temp Pulse Resp B/P Pulse Ox O2 Delivery O2 Flow Rate FiO2 04/28/17 19:44 98.7 18 04/28/17 19:44 92 104/65 04/28/17 19:44 98.7 92 18 104/65 04/28/17 19:31 98.4 85 16 101/62 04/28/17 19:12 98.4 85 16 101/62 04/28/17 18:40 98.0 82 16 96/59 98 04/28/17 18:40 82 96/59 04/28/17 18:40 98.0 16 98 04/28/17 16:00 98.3 94 18 106/61 99 04/28/17 16:00 98.3 94 18 106/61 99 04/28/17 15:40 113/70 04/28/17 15:40 98.4 115 18 113/70 99 04/28/17 15:40 98.4 115 18 99 04/28/17 15:30 98.4 115 18 113/70 99 04/28/17 12:30 84 16 98/59 99 04/28/17 12:30 97.9 04/28/17 12:30 97.9 84 16 98/59 99 04/28/17 12:15 98.0 89 16 84/53 98 04/28/17 12:15 98.0 89 16 84/53 98 Objective Remarks GENERAL: Well-nourished, well-developed patient. CARDIOVASCULAR: Regular rate and rhythm without murmurs, gallops, or rubs. RESPIRATORY: Breath sounds equal bilaterally. No accessory muscle use. ABDOMEN/GI: Abdomen soft, non-tender. Fundus: Firm, non-tender at umbilicus. GENITOURINARY: Light to moderate bleeding. EXTREMITIES: No cyanosis or edema, non-tender, without signs of DVT. Medications and IVs Current Medications Medications (Trade) Dose Ordered Sig/Germania Route Start Time Stop Time Status Last Admin Lactated Ringer's 1,000 ml @ 125 mls/hr Q8H IV 04/26/17 12:32 04/27/17 06:12 Lactated Ringer's 1,000 ml @ 3,000 mls/hr Q20M PRN IV 04/26/17 12:32 (NS 1000 ml Inj) 1,000 ml @ 100 mls/hr Q10H PRN IV 04/26/17 12:52 (Zofran Inj) 4 mg Q6H PRN IV 04/26/17 12:45 04/26/17 23:14 Mineral Oil 10 ml 10 ml UNSCH PRN TOPICAL 04/26/17 12:45 (fentaNYL 2MCG-BUPIV 0.125% INJ) 100 ml @ 0 mls/hr TITRATE EPIDURAL 04/27/17 06:15 04/27/17 09:35 (NS Flush) 2 ml BID IV FLUSH 04/27/17 21:00 04/28/17 08:30 (NS Flush) 2 ml UNSCH PRN IV FLUSH 04/27/17 12:00 (Americaine 20% Top Spr) 1 spray Q4H PRN TOPICAL 04/27/17 12:00 04/27/17 12:33 (Tucks Pads) 1 applic QID PRN TOPICAL 04/27/17 12:00 04/27/17 12:33 (Adwoa-Colace) 2 tab Q12H PRN PO 04/27/17 12:00 (Ambien) 5 mg HS PRN PO 04/27/17 12:00 (Mag-Al Plus Susp Liq) 15 ml Q8H PRN PO 04/27/17 12:00 (Zofran Odt) 4 mg Q6H PRN PO 04/27/17 12:00 (Colace) 100 mg BID PO 04/27/17 21:00 04/28/17 20:39 (Motrin) 400 mg Q6H PRN PO 04/28/17 07:15 04/29/17 02:26 (Percocet 5-325 Mg) 1 tab Q6H PRN PO 04/28/17 07:15 (Morphine Inj) 4 mg Q3H PRN IV 04/28/17 07:15 (Narcan Inj) 0.4 mg UNSCH PRN IV 04/28/17 07:15 (Percocet 5-325 Mg) 2 tab Q4H PRN PO 04/28/17 10:30 04/29/17 02:26 Assessment/Plan Problem List: (1) (spontaneous vaginal delivery) (2) Acute blood loss anemia Assessment and Plan Patient is a 26-year-old delivered at 40 weeks and 0 days. Patient is day 2 after . Patient was counseled to do 6 weeks of pelvic rest. Patient was counseled to follow up in 6 weeks. Patient requested follow-up and contraception. 1. Acute blood loss anemia. hemoglobin trended: 13.2, 8.0, 5.8, came up to 9.9 after 3 units of PRBC transfused Patient denies vaginal bleeding AF VSS Patient feels well 2. Routine care --AF VSS --Continue routine care --Motrin and Percocet when necessary for pain, morphine for breakthrough pain --Encourage OOB --Pelvic rest for 6 weeks will need follow-up appointment at that time. --Contraception: Depo-Provera --Anticipate discharge today d/w Dr. Raheel Anderson,Alonzo Gonzalez MD R2 Apr 29, 2017 08:39
[2017-04-29] MEDS ORDERED: IBUP400T20 PO (08:46)
--- NOTE | 2017-04-29 08:46 | HHI.DCPOC ---
Discharge Care Plan Diagnosis: (1) (spontaneous vaginal delivery) (2) Acute blood loss anemia Report Symptoms to Your Doctor -Temperature above 100.5 degrees -Redness, of incision or excessive or foul smelling drainage -Unusual pain or calf pain -Increased vaginal bleeding -Painful or difficulty urinating -Feelings of extreme sadness or anxiety after 2 weeks Goals to Promote Your Health * To prevent worsening of your condition and complications, please follow-up with your doctor within 6 weeks. * To maintain your health at the optimal level, please follow your doctor's instructions. Directions to Meet Your Goals Take your medications as prescribed Follow your dietary instruction Follow activity as directed Ensure plenty of rest for recovery Drink fluids for hydration Keep your appointments as scheduled Take your immunizations and boosters as scheduled If your symptoms worsen call your PCP, if no PCP go to Urgent Care Center or Emergency Room Smoking is Dangerous to Your Health. Avoid second hand smoke Call the 24-hour crisis hotline for domestic abuse at Alonzo Anderson MD R2 Apr 29, 2017 08:46
[2017-04-29] MEDS: DOCUSATE SODIUM 100 MG CAP PO SCH (09:00)
[2017-04-29] MEDS ORDERED: medroxyPROGESTERone ACETATE SUSP 150 MG/ML SYRINGE IM ONE (10:00)
== END 2017-04-29 12:30 | disposition home or self-care (01) | DRG 774 ==
LOC: HOBED 10:03 → H2EB 12:53 → H2EA 13:28 → H1EA 04-27 15:44
PROVIDERS: ADMIT Obstetrics & Gynecology; ATTEND Obstetrics & Gynecology
PROC: 3E033VJ Introduction of Other Hormone into Peripheral Vein, Percutaneous Approach (ICD-10-PCS; 2017-04-26)
PROC: 0DQR0ZZ Repair Anal Sphincter, Open Approach (ICD-10-PCS; principal; 2017-04-27)
PROC: 10D07Z4 Extraction of Products of Conception, Mid Forceps, Via Natural or Artificial Opening (ICD-10-PCS; 2017-04-27)
PROC: 0W8NXZZ Division of Female Perineum, External Approach (ICD-10-PCS; 2017-04-27)
PROC: 30233N1 Transfusion of Nonautologous Red Blood Cells into Peripheral Vein, Percutaneous Approach (ICD-10-PCS; 2017-04-28)
DX: O41.03X0 Oligohydramnios, third trimester, not applicable or unspecified (principal); O67.8 Other intrapartum hemorrhage; D62 Acute posthemorrhagic anemia; O75.81 Maternal exhaustion complicating labor and delivery; O99.02 Anemia complicating childbirth; O76 Abnormality in fetal heart rate and rhythm complicating labor and delivery; Z37.0 Single live birth; Z3A.40 40 weeks gestation of pregnancy
CPT/HCPCS: 36430; 59025; 76816; 80053; 81001; 82805; 85014; 85018; 85025; 85027; 86850; 86900; 86901; 86920; 87086; 90715; J1050; J1940; J2405; J2590; J3010; J7120; P9016

== ENCOUNTER 2017-04-30 04:20 | Observation (INO) | payer MEDICAID ==
[~2017-04-30] VITALS: Ht 149.9 cm; Wt 55.0 kg
[~2017-04-30 04:20] MED LIST changes: -CEPH-460 PO; -HYDR-3533 PO; +IBUP400T20 PO; +PREN29TA PO; -ZOFR4TAB3 SL; +tylenol PO
[2017-04-30 04:46] VITALS: BP 142/81; PULSE 80; RESP 18; O2SAT 99
[2017-04-30] MEDS ORDERED: ONDANSETRON HCL 4 MG/2 ML VIAL IV PUSH ONE (05:00)
[2017-04-30] MEDS ORDERED: MORPHINE SULFATE 4 MG/ML INJ IV PUSH ONE (05:00)
--- NOTE | 2017-04-30 05:22 | PD ---
HPI Chief Complaint: Abdominal Pain Time Seen by Provider: 04:51 Travel History International Travel<30 days: No Contact w/Intl Traveler<30days: No Traveled to known affect area: No History of Present Illness HPI Patient is a 26-year-old female, 3 days , who comes in complaining of abdominal pain and vaginal bleeding. She was discharged yesterday. She says since being discharged she has failed 3 pads with blood. She says this is the same amount of bleeding she has had since the delivery. She does report a difficult delivery where she had a large tear, and she had a lot of bleeding that required transfusion. He says she has severe pain to her suprapubic area. She denies fever or chills. Her legs did start swelling yesterday. She denies headache or blurred vision. PFS Past Medical History Medical History: Denies Significant Hx Diminished Hearing: No ?: Not Past Surgical History Surgical History: No Previous Surgery Social History Alcohol Use: No Tobacco Use: No Substance Use: No Allergies-Medications (Allergen,Severity, Reaction): Coded Allergies: No Known Allergies (Unverified , 04/30/17) Reported Meds & Prescriptions Reported Meds & Active Scripts Active No Active Prescriptions or Reported Medications Review of Systems Except as stated in HPI: all other systems reviewed are Neg General / Constitutional: No: Fever, Chills Eyes: No: Blurred Vision HENT: No: Headaches, Lightheadedness Cardiovascular: No: Chest Pain or Discomfort Respiratory: No: Shortness of Breath Gastrointestinal: Positive: Nausea, Abdominal Pain, No: Vomiting Genitourinary: Positive: Vaginal Bleeding, No: Dysuria Musculoskeletal: Positive: Edema Skin: No Rash, No Hives, No Change in Pigmentation Neurologic: No: Weakness, Dizziness Physical Exam Narrative GENERAL: Awake and alert, in no acute distress. SKIN: Focused skin assessment warm/dry. HEAD: Atraumatic. Normocephalic. EYES: Pupils equal and round. No scleral icterus. ENT: Mucous membranes pink and moist. NECK: Trachea midline. No JVD. CARDIOVASCULAR: Regular rate and rhythm. No murmur appreciated. RESPIRATORY: No accessory muscle use. Clear to auscultation. Breath sounds equal bilaterally. GASTROINTESTINAL: Abdomen soft, nondistended. Tender to palpation of the suprapubic area. MUSCULOSKELETAL: No obvious deformities. No clubbing. No cyanosis. 2+ pitting edema of the bilateral lower extremities. NEUROLOGICAL: Awake and alert. No obvious cranial nerve deficits. Motor grossly within normal limits. Normal speech. PSYCHIATRIC: Appropriate mood and affect; insight and judgment normal. Data Data Last Documented VS Vital Signs Date Time Temp Pulse Resp B/P Pulse Ox O2 Delivery O2 Flow Rate FiO2 04/30/17 04:46 80 18 142/81 99 Orders Complete Blood Count With Diff (04/30/17 04:51) Basic Metabolic Panel (Bmp) (04/30/17 04:51) Hepatic Functional Panel (04/30/17 04:51) Urinalysis - C+S If Indicated (04/30/17 04:51) Uric Acid (04/30/17 04:51) Morphine Inj (Morphine Inj) (04/30/17 05:00) Ondansetron Inj (Zofran Inj) (04/30/17 05:00) Admit Order (Ed Use Only) (04/30/17 ) Labs Laboratory Tests Test 04/30/17 04:57 White Blood Count 10.8 TH/MM3 Red Blood Count 3.88 MIL/MM3 Hemoglobin 11.6 GM/DL Hematocrit 34.3 % Mean Corpuscular Volume 88.3 FL Mean Corpuscular Hemoglobin 29.9 PG Mean Corpuscular Hemoglobin 33.8 % Concent Red Cell Distribution Width 17.0 % Platelet Count 170 TH/MM3 Mean Platelet Volume 8.7 FL Neutrophils (%) (Auto) 71.9 % Lymphocytes (%) (Auto) 19.8 % Monocytes (%) (Auto) 6.6 % Eosinophils (%) (Auto) 1.1 % Basophils (%) (Auto) 0.6 % Neutrophils # (Auto) 7.8 TH/MM3 Lymphocytes # (Auto) 2.1 TH/MM3 Monocytes # (Auto) 0.7 TH/MM3 Eosinophils # (Auto) 0.1 TH/MM3 Basophils # (Auto) 0.1 TH/MM3 CBC Comment DIFF FINAL Differential Comment Sodium Level 141 MEQ/L Potassium Level 3.7 MEQ/L Chloride Level 106 MEQ/L Carbon Dioxide Level 24.8 MEQ/L Anion Gap 10 MEQ/L Blood Urea Nitrogen 8 MG/DL Creatinine 0.41 MG/DL Estimat Glomerular Filtration 191 ML/MIN Rate Random Glucose 69 MG/DL Uric Acid 4.4 MG/DL Calcium Level 8.4 MG/DL Total Bilirubin 0.4 MG/DL Direct Bilirubin 0.1 MG/DL Indirect Bilirubin 0.3 MG/DL Aspartate Amino Transf 34 U/L (AST/SGOT) Alanine Aminotransferase 18 U/L (ALT/SGPT) Alkaline Phosphatase 163 U/L Total Protein 6.1 GM/DL Albumin 2.4 GM/DL MDM Medical Decision Making Medical Screen Exam Complete: Yes Emergency Medical Condition: Yes Medical Record Reviewed: Yes Differential Diagnosis Preeclampsia versus retained products versus abdominal pain versus endometritis Narrative Course Patient is a 26-year-old female, 3 days , who comes in complaining of abdominal pain. Exam shows tenderness is suprapubic area as well as bilateral lower extreme edema. IV established, labs sent. Dr. Hidalgo of obstetrics came down to see the patient and will admit. Patient admitted to OB for further management. Diagnosis Primary Impression: Abdominal pain Qualified Code: R10.84 - Generalized abdominal pain Admitting Information Admitting Physician Requests: Admit Scripts No Active Prescriptions or Reported Meds Condition: Alaina Hooper MD Apr 30, 2017 05:22
[2017-04-30 05:26] LABS: AUTOMATED NEUTROPHIL # 7.8 TH/MM3 (1.8-7.7); BASOPHIL # 0.1 TH/MM3 (0-0.2); BASOPHIL % 0.6 % (0.0-2.0); EOSINOPHIL # 0.1 TH/MM3 (0-0.4); EOSINOPHIL % 1.1 % (0.0-4.0); HEMATOCRIT 34.3 % (35.0-46.0); HEMO FLAGS DIFF FINAL; LYMPH % 19.8 % (9.0-44.0); LYMPHOCYTE # 2.1 TH/MM3 (1.0-4.8); MEAN CELL VOLUME 88.3 FL (80.0-100.0); MEAN CORPUSCULAR HEMOGLOBIN 29.9 PG (27.0-34.0); MEAN CORPUSCULAR HGB CONC 33.8 % (32.0-36.0); MONO % 6.6 % (0.0-8.0); NEUT % 71.9 % (16.0-70.0); PLATELET COUNT 170 TH/MM3 (150-450); RED BLOOD COUNT 3.88 MIL/MM3 (4.00-5.30); WHITE BLOOD COUNT 10.8 TH/MM3 (4.0-11.0)
--- NOTE | 2017-04-30 05:48 | HHI.HP ---
HPI Chief Complaint Increase in pelvic and perineal pain, increased bleeding, increased swelling in the perineal area Date Seen: Apr 30, 2017 Travel History International Travel<30 Days: No Contact w/Intl Traveler<30Days: No Known Affected Area: No History of Present Illness HPI Patient is 26-year-old who is 4 days from an. Operative vaginal delivery with third-degree laceration patient bled extensively during the second stage of labor. She had normal bleeding after that. She received 3 units of blood on her first day for hemoglobin of 5.8, the day after that patient was sent home with just Motrin patient states that she felt okay when she was discharged that within one hour started hurting very badly in her abdomen and in her bottom and it got worse and worse. He presents to the emergency room this morning the same complaints. She is bled approximately 3 pads were with blood and last 24 hours which essentially normal lochia. Patient states the baby is doing well at home Para: 1 : 1 History Obstetric History Obstetric History Patient had an outlet forceps delivery with third-degree extension of a midline episiotomy with adequate repair. She had a peripartum bleed during the second stage of labor that required of 3 units of blood Past Surgical History Narrative Surgical Operative vaginal delivery and repair of episiotomy perineal laceration Social History Alcohol Use: No Tobacco Use: No Substance Abuse: No Allergies-Medications (Allergen,Severity, Reaction): Coded Allergies: No Known Allergies (Unverified , 04/30/17) Home Meds No Active Prescriptions or Reported Meds Review of Systems General / Constitutional: No: Fever, Weight Gain, Chills, Other Eyes: No: Diploplia, Blurred Vision, Visual changes, Pain, Photophobia HENT: No: Headaches, Vertigo, Lightheadedness Cardiovascular: No: Irregular Rhythm, Chest Pain or Discomfort, Palpitations, Tachycardia, Syncope, Varicosities, Edema, Cyanosis Respiratory: No: Cough, Short of Breath, Other Gastrointestinal: Abdominal Pain, No: Nausea, Vomiting, Diarrhea Genitourinary: Vaginal Bleeding, No: Decreased Urinary Output, Oliguria Musculoskeletal: Edema, No: Limited ROM, Weakness, Cramping, Pain Skin: No Rash, No Itching, No Dryness, No Lumps, No Change in Pigmentation, No Change in Nails, No Alopecia, No Lesions Neurologic: No: Weakness, Dizziness, Syncope, Focal Abnormalities, Coordination Problem, Headache, Slurred Speech, Seizures Psychiatric: No: Depression, Suicidal Ideations, Homicidal Ideation Endocrine: No: Heat Intolerance, Cold Intolerance, Polydipsia, Polyuria, Other Physical Exam Vital Signs Date Time Temp Pulse Resp B/P Pulse Ox O2 Delivery O2 Flow Rate FiO2 04/30/17 04:46 80 18 142/81 99 Narrative GENERAL: Well-nourished, well-developed patient. SKIN: Warm and dry. HEAD: Normocephalic and atraumatic. EYES: No scleral icterus. No injection or drainage. ENT: No nasal drainage noted. Mucous membranes pink. Airway patent. NECK: Supple, trachea midline. No JVD. CARDIOVASCULAR: Regular rate and rhythm without murmurs, gallops, or rubs. RESPIRATORY: Breath sounds equal bilaterally. No accessory muscle use. BREASTS: Bilateral exam showed no masses , no retractions, no nipple discharge. ABDOMEN/GI: Abdomen soft, uterus 1-2 + -tender, bowel sounds present, no rebound, no guarding uterus at umbilicus and firm 2+ tender GENITOURINARY: External Genitalia: intact perineum looks appropriate for 4 days after 3 rd deg repair no infection noted ,minimal swelling seen EXTREMITIES: No cyanosis 1+ edema. BACK: Nontender without obvious deformity. No CVA tenderness. NEUROLOGICAL: Awake and alert. Motor and sensory grossly within normal limits. Five out of 5 muscle strength in all muscle groups. Normal speech. Data Data Orders Complete Blood Count With Diff (04/30/17 04:51) Basic Metabolic Panel (Bmp) (04/30/17 04:51) Hepatic Functional Panel (04/30/17 04:51) Urinalysis - C+S If Indicated (04/30/17 04:51) Uric Acid (04/30/17 04:51) Morphine Inj (Morphine Inj) (04/30/17 05:00) Ondansetron Inj (Zofran Inj) (04/30/17 05:00) Admit Order (Ed Use Only) (04/30/17 ) Labs Laboratory Tests Test 04/30/17 04:57 White Blood Count 10.8 Red Blood Count 3.88 Hemoglobin 11.6 Hematocrit 34.3 Mean Corpuscular Volume 88.3 Mean Corpuscular Hemoglobin 29.9 Mean Corpuscular Hemoglobin 33.8 Concent Red Cell Distribution Width 17.0 Platelet Count 170 Mean Platelet Volume 8.7 Neutrophils (%) (Auto) 71.9 Lymphocytes (%) (Auto) 19.8 Monocytes (%) (Auto) 6.6 Eosinophils (%) (Auto) 1.1 Basophils (%) (Auto) 0.6 Neutrophils # (Auto) 7.8 Lymphocytes # (Auto) 2.1 Monocytes # (Auto) 0.7 Eosinophils # (Auto) 0.1 Basophils # (Auto) 0.1 CBC Comment DIFF FINAL Differential Comment Assessment/Plan Assessment and Plan Patient is 26-year-old who is 4 days from a operative vaginal delivery with third-degree perineal laceration and repair ,3 units blood transfusion. Sent to return to the emergency room complaining of increasing pain in her abdomen and perineal area with increased swelling in the perineal and perianal area bleeding on exam of the bleeding is within normal limits her perineum appears normal for some one who had a repair of third degree Laceration no overt infection or dehiscence. I believe the patient just went home from hospital to early in this case because of a relatively traumatic delivery and then transfusion being primiparous she had no idea what to expect and does not speak Hebrew is just a combination of all the above factors that caused her to just come to the emergency room in distress Impression- pain Plan-admit to 23 observation to the mother-baby unit. Plan IV hydration and IV Kefzol, and IV pain medication. Charles Hidalgo II, MD Apr 30, 2017 05:48
[2017-04-30] MEDS ORDERED: SODIUM CHLORIDE 0.9% FLUSH 10 ML FLUSH IV FLUSH PRN ×2 (06:00)
[2017-04-30] MEDS ORDERED: ONDANSETRON ODT 4 MG TAB PO PRN (06:00)
[2017-04-30] MEDS ORDERED: WITCH HAZEL 50%/GLYCERIN 12.5% 40 PAD JAR TOPICAL PRN (06:00)
[2017-04-30] MEDS ORDERED: ALUMINUM/MAGNESIUM/SIMETH 30 ML CUP PO PRN (06:00)
[2017-04-30] MEDS ORDERED: DOCUSATE SODIUM 50 MG/SENNA 8.6 MG TAB PO PRN (06:00)
[2017-04-30] MEDS ORDERED: oxyCODONE/ACETAMINOPHEN 5 MG/325 MG TAB PO PRN (06:00)
[2017-04-30] MEDS ORDERED: ACETAMINOPHEN 325 MG TAB PO PRN (06:00)
[2017-04-30] MEDS ORDERED: BENZOCAINE 20% TOPICAL SPRAY 60 ML CAN TOPICAL PRN (06:00)
[2017-04-30] MEDS ORDERED: MORPHINE SULFATE 4 MG/ML INJ IV PUSH PRN (06:00)
[2017-04-30] MEDS ORDERED: ZOLPIDEM TARTRATE 5 MG TAB PO PRN (06:00)
[2017-04-30 06:09] VITALS: BP 119/75; PULSE 62; RESP 18; TEMP 98.1; O2SAT 99
[2017-04-30 06:12] LABS: BICARBONATE 24.8 MEQ/L (21.0-32.0); POTASSIUM 3.7 MEQ/L (3.5-5.1); URIC ACID 4.4 MG/DL (2.6-6.0)
[2017-04-30 06:14] LABS: INDIRECT BILIRUBIN 0.3 MG/DL (0.0-0.8); TOTAL BILIRUBIN ADULT 0.4 MG/DL (0.2-1.0)
[2017-04-30] MEDS ORDERED: MORPHINE SULFATE 4 MG/ML INJ IV ONE (06:30)
[2017-04-30] MEDS: LACTATED RINGER'S 1000 ML INJ 1,000 ML IV SCH ×2 (06:41→16:15)
[2017-04-30] MEDS: cefTRIAXone INJ 2,000 MG in SODIUM CHLORIDE 0.9% INJ 100 ML IV SCH (06:41)
[2017-04-30] MEDS: SODIUM CHLORIDE 0.9% FLUSH 10 ML FLUSH IV FLUSH SCH (07:43)
[2017-04-30 08:12] VITALS: BP 97/54; PULSE 68; RESP 16; TEMP 98.5; O2SAT 100
[2017-04-30] MEDS ORDERED: SODIUM CHLORIDE 0.9% FLUSH 10 ML FLUSH IV FLUSH SCH (09:00)
[2017-04-30] MEDS: oxyCODONE/ACETAMINOPHEN 5 MG/325 MG TAB PO PRN ×3 (11:16→21:41)
[2017-04-30] MEDS: IBUPROFEN 600 MG TAB PO PRN (11:16)
[2017-04-30 11:48] LABS: BACTERIA, URINE OCC /hpf; BLOOD, URINE MOD (NEG); COMMENT (UR) CULTURE INDICATED; CULTURE IF INDICATED CULTURE INDICATED; GLUCOSE,URINE NEG (NEG); KETONE, URINE 40 mg/dL (NEG); NITRITE,URINE NEG (NEG); RENAL EPITHELIAL CELLS <1 /hpf; SQUAMOUS EPITHELIAL CELL URINE 1 /hpf (0-5); TRANSITIONAL EPI CELLS, URINE <1 /hpf; URINE COLOR YELLOW (YELLW/STRAW)
[2017-04-30 13:00] VITALS: BP 113/60; PULSE 63; RESP 16; TEMP 98.5; O2SAT 100
[2017-04-30] MEDS ORDERED: HYDROCORTISONE/PRAMOXINE RECTAL FOAM 10 GM CAN RECTAL PRN (18:00)
[2017-04-30 19:35] VITALS: BP 99/55; PULSE 62; RESP 18; TEMP 98.8
[2017-05-01] MEDS: IBUPROFEN 600 MG TAB PO PRN ×2 (01:34→11:02)
[2017-05-01] MEDS: oxyCODONE/ACETAMINOPHEN 5 MG/325 MG TAB PO PRN ×3 (01:34→11:02)
[2017-05-01] MEDS: LACTATED RINGER'S 1000 ML INJ 1,000 ML IV SCH (03:57)
[2017-05-01] MEDS: cefTRIAXone INJ 2,000 MG in SODIUM CHLORIDE 0.9% INJ 100 ML IV SCH (06:09)
[2017-05-01] MEDS: SODIUM CHLORIDE 0.9% FLUSH 10 ML FLUSH IV FLUSH SCH (07:11)
[2017-05-01 07:50] VITALS: BP 103/61; PULSE 53; RESP 18; TEMP 98.3; O2SAT 100
--- NOTE | 2017-05-01 09:52 | HHI.OB ---
Subjective Remarks day # 4 AFVSS overnight. Symptoms improving overall. Decreased lochia. Denies dysuria. No breast tenderness. Appetite good. No nausea or vomiting. Positive flatus/bowel movement. Ambulating well. Denies calf pain or shortness of breath. Otherwise, she is doing well this morning and has no other complaints. (Kimberley Baumann MD, R3) Objective Vitals/I&O Vital Signs Date Time Temp Pulse Resp B/P Pulse Ox O2 Delivery O2 Flow Rate FiO2 05/01/17 07:50 98.3 53 18 103/61 100 04/30/17 19:35 98.8 62 18 99/55 04/30/17 13:00 98.5 63 16 113/60 100 Objective Remarks GENERAL: Well-nourished, well-developed patient. CARDIOVASCULAR: Regular rate and rhythm without murmurs, gallops, or rubs. RESPIRATORY: Breath sounds equal bilaterally. No accessory muscle use. ABDOMEN/GI: Abdomen soft, non-tender. Fundus: Firm, non-tender at umbilicus. GENITOURINARY: Light to moderate bleeding. EXTREMITIES: No cyanosis or edema, non-tender, without signs of DVT. Medications and IVs Current Medications Medications (Trade) Dose Ordered Sig/[place] Route Start Time Stop Time Status Last Admin (Tylenol) 650 mg Q4H PRN PO 04/30/17 06:00 (Motrin) 600 mg Q6H PRN PO 04/30/17 06:00 05/01/17 01:34 (Percocet 5-325 Mg) 1 tab Q4H PRN PO 04/30/17 06:00 (Percocet 5-325 Mg) 2 tab Q4H PRN PO 04/30/17 06:00 05/01/17 06:08 (Americaine 20% Top Spr) 1 spray Q4H PRN TOPICAL 04/30/17 06:00 04/30/17 17:45 (Tucks Pads) 1 applic QID PRN TOPICAL 04/30/17 06:00 04/30/17 17:45 (Adwoa-Colace) 2 tab Q12H PRN PO 04/30/17 06:00 04/30/17 21:40 (Ambien) 5 mg HS PRN PO 04/30/17 06:00 (Mag-Al Plus Susp Liq) 15 ml Q8H PRN PO 04/30/17 06:00 (Zofran Odt) 4 mg Q6H PRN PO 04/30/17 06:00 (NS Flush) 2 ml BID IV FLUSH 04/30/17 09:00 Sodium Chloride 2 ml 2 ml UNSCH PRN IV FLUSH 04/30/17 06:00 (Rocephin Inj/NS Inj) 100 ml @ 200 mls/hr Q24H IV 04/30/17 06:00 05/01/17 06:09 Morphine Sulfate 4 mg 4 mg Q3H PRN IV PUSH 04/30/17 06:00 (Lr 1000 ml Inj) 1,000 ml @ 100 mls/hr Q10H IV 04/30/17 06:15 05/01/17 03:57 (Proctofoam Hc Rectal Foam) 1 applic Q8H PRN RECTAL 04/30/17 18:00 04/30/17 21:41 (Kimberley Baumann MD, R3) Assessment/Plan Assessment and Plan 26 y/o female who is PPD# 4 s/p . -Continue routine care. -Percocet and Motrin PRN pain. -Encouraged OOB. Advised pelvic rest for 6 wks. -Proctofoam for Hemorrhoids -Discharge home today. dw Dr. Weston and Dr. Isbell R1 (Kimberley Baumann MD, R3) Collaborating MD Comments Discussed care and evaluation with resident team. Ready for discharge. (Raven Weston MD) Kimberley Baumann MD, R3 May 01, 2017 09:52 Raven Weston MD May 02, 2017 11:03 degree Laceration no overt infection or dehiscence. I believe the patient just went home from hospital to early in this case because of a relatively traumatic delivery and then transfusion being primiparous she had no idea what to expect and does not speak Maldivian is just a combination of all the above factors that caused her to just come to the emergency room in distress Impression- pain Plan-admit to 23 observation to the mother-baby unit. Plan IV hydration and IV Kefzol, and IV pain medication. Kimberley Baumann MD, R3 May 01, 2017 09:52
[2017-05-01] MEDS ORDERED: IBUP-232 PO (09:57)
[2017-05-01] MEDS ORDERED: PERI8.6T PO (09:57)
[2017-05-01] MEDS ORDERED: PROCHCT RECTAL (09:57)
--- NOTE | 2017-05-01 09:57 | HHI.DCPOC ---
Discharge Care Plan Diagnosis: (1) (spontaneous vaginal delivery) Report Symptoms to Your Doctor -Temperature above 100.5 degrees -Redness, of incision or excessive or foul smelling drainage -Unusual pain or calf pain -Increased vaginal bleeding -Painful or difficulty urinating -Feelings of extreme sadness or anxiety after 2 weeks Goals to Promote Your Health * To prevent worsening of your condition and complications * To maintain your health at the optimal level Directions to Meet Your Goals Take your medications as prescribed Follow your dietary instruction Follow activity as directed Ensure plenty of rest for recovery Drink fluids for hydration Keep your appointments as scheduled Take your immunizations and boosters as scheduled If your symptoms worsen call your PCP, if no PCP go to Urgent Care Center or Emergency Room Smoking is Dangerous to Your Health. Avoid second hand smoke Call the 24-hour crisis hotline for domestic abuse at Kimberley Baumann MD, R3 May 01, 2017 09:57
== END 2017-05-01 11:17 | disposition home or self-care (01) ==
LOC: NEPE 04:20 → MERGE 05:22 → INTOOBSV 05:22 → NEDA 05:22 → H1EA 05:53
PROVIDERS: ADMIT Obstetrics & Gynecology Maternal & Fetal Medicine; ATTEND Obstetrics & Gynecology Maternal & Fetal Medicine
DX: O72.1 Other immediate postpartum hemorrhage (principal); R10.84 Generalized abdominal pain; R60.9 Edema, unspecified
CPT/HCPCS: 80048; 80076; 81001; 84550; 85025; 87086; 96374; 96375; 96376; 99285; G0378; J0696; J2270; J2405; J7120